=== PATIENT | male | born 1955 | race African-American/Black ===

== ENCOUNTER 2019-03-06 19:50 | Inpatient (IN) | payer MEDICARE, OTHER ==
[~2019-03-06] VITALS: Ht 180.3 cm; Wt 97.5 kg
[2019-03-06 23:33] VITALS: BP 146/74
--- NOTE | 2019-03-06 23:50 | NUR ---
NURSE NOTES: Received report from PAM Juarez [facility]. Pt arrived awake, alert, and talkative. skin intact. lung sounds clear. bowel sounds present. pt still c/o chest pain. Called and informed Dr granger as well as received admission orders. Bed in lowest position. Call light within reach. Family at bedside. Will continue to monitor.
--- NOTE | 2019-03-07 01:30 | NUR ---
NURSE NOTES: Dr. Yap gave the following orders: - continue home meds except for fish oil, prednisone, and cyclobenzaprine - heparin q12 - medium sliding scale - azithromycin daily X5 days 250 mg - rocephin 1 gm iv q24 hrs - cbc, cmp, mag, phos - troponin - 2decho - cardiac/ccho med diet Will input orders. Will continue to monitor.
[2019-03-07] MEDS ORDERED: SENNA8.6 M2 PO (02:33)
[2019-03-07] MEDS ORDERED: ALLOPURINOL100 M1 ORAL (02:33)
[2019-03-07] MEDS ORDERED: VITAMIN D400 INTLU ORAL (02:33)
[2019-03-07] MEDS ORDERED: AMLODIPINE BESYL5 MG ORAL (02:33)
[2019-03-07] MEDS ORDERED: OMEPRAZOLE20 M3 ORAL (02:33)
[2019-03-07] MEDS ORDERED: MITIGARE0.6 MG PO (02:33)
[2019-03-07] MEDS ORDERED: METFORMIN HCL1000 M2 ORAL (02:33)
[2019-03-07] MEDS ORDERED: ASPIR 8181 MG ORAL (02:33)
[2019-03-07] MEDS ORDERED: FINASTERIDE5 MG ORAL (02:33)
[2019-03-07] MEDS ORDERED: FLOMAX0.4 MG ORAL (02:33)
[2019-03-07] MEDS ORDERED: HYDROCHLOROTHIA25 MG ORAL (02:33)
[2019-03-07] MEDS ORDERED: METOPROLOL TART50 M1 ORAL (02:33)
[2019-03-07] MEDS ORDERED: CLOPIDOGREL75 MG ORAL (02:33)
[2019-03-07] MEDS ORDERED: FUROSEMIDE40 MG ORAL (02:33)
[2019-03-07] MEDS: cefTRIAXone 1 GM in D5W 55 ML IVPB SCH (03:44)
[2019-03-07] MEDS: NovoLOG Insulin Flexpen SUBQ SCH ×4 (06:16→22:00)
[2019-03-07 07:00] LABS: ALANINE AMINOTRANSFERASE 36 U/L (12-78); ALBUMIN 3.4 G/DL (3.4-5.0); ALKALINE PHOSPHATASE 55 U/L (46-116); ANION GAP 8 mmol/L (5-15); ASPARTATE AMINO TRANSFERASE 33 U/L (15-37); BILIRUBIN,TOTAL 0.5 MG/DL (0.2-1.0); BLOOD UREA NITROGEN 20 mg/dL (7-18); CALCIUM 9.2 MG/DL (8.5-10.1); CARBON DIOXIDE 29 MMOL/L (21-32); CHLORIDE 103 MMOL/L (98-107); CREATININE 1.2 MG/DL (0.55-1.30); PHOSPHORUS 3.6 MG/DL (2.5-4.9); POTASSIUM 3.5 MMOL/L (3.5-5.1); SODIUM 139 MMOL/L (136-145)
[2019-03-07 07:09] LABS: BASOPHILS % (AUTO) 1.1 % (0.0-2.0); EOSINOPHILS % (AUTO) 3.6 % (0.0-3.0); HEMATOCRIT 37.3 % (42.0-52.0); HEMOGLOBIN 12.8 G/DL (14.2-18.0); LYMPHOCYTES % (AUTO) 29.4 % (20.0-45.0); MEAN CORPUSCULAR VOLUME 88 FL (80-99); MONOCYTES % (AUTO) 10.7 % (1.0-10.0); NEUTROPHILS % (AUTO) 55.2 % (45.0-75.0); PLATELET COUNT 148 K/UL (150-450); RED BLOOD COUNT 4.23 M/UL (4.70-6.10); RED CELL DISTRIBUTION WIDTH 11.6 % (11.6-14.8); WHITE BLOOD COUNT 4.9 K/UL (4.8-10.8)
[2019-03-07] MEDS ORDERED: BUPROPION XL300 MG ORAL (07:09)
[2019-03-07] MEDS ORDERED: SEROQUEL300 MG ORAL (07:09)
[2019-03-07] MEDS ORDERED: LATUDA120 MG PO ×2 (07:09)
--- NOTE | 2019-03-07 07:15 | NUR ---
NURSE NOTES: Called and left a message with Dr. Yap regarding pts troponin level. Will continue to monitor.
--- NOTE | 2019-03-07 07:36 | NUR ---
HAND-OFF: Report given to PAM Angulo. Pt stable.
--- NOTE | 2019-03-07 07:37 | NUR ---
NURSE NOTES: Received report from PAM Olea. Pt is resting in bed, A/Ox4. Breathing unlabored in room air. IV patent. No signs and symptoms of acute distress noted at this time. Bed in lowest position, with two side rails up. Bed side table and call light within reach. Will continue plan of care.
[2019-03-07 08:00] VITALS: BP 116/52
[2019-03-07] MEDS: Aspirin EC 81mg tab ORAL SCH (08:50)
[2019-03-07] MEDS: BuPROPion XL 150mg tab ORAL SCH (08:51)
[2019-03-07] MEDS: Azithromycin 250mg tab ORAL SCH (08:51)
[2019-03-07] MEDS: Vitamin D 1000 IU Tab ORAL SCH (08:51)
[2019-03-07] MEDS: Furosemide 40mg tab ORAL SCH (08:51)
[2019-03-07] MEDS: Allopurinol 100mg Tab ORAL SCH (08:52)
[2019-03-07] MEDS: Morphine Sulfate 2mg/ml Inj(IV/IM USE ONLY) IVP PRN ×4 (08:53→21:51)
--- NOTE | 2019-03-07 08:53 | NUR ---
CASE MANAGEMENT:REVIEW 63 YR OLD MALE TRANSFERRED FROM [facility] CC: CHEST PAIN SI: ACS 97.9 70 146/74 96% ON RA TROPONIN(+) 0.072 IS: IV ROCEPHIN Q24 AZITHROMYCIN PO QD ASA PO QD PLAVIX PO QD LOPRESSOR PO BID NORVASC PO QD HEPARIN SQ Q12 DIRECTLY ADMITTED TO TELEMETRY UNIT INTERQUAL CRITERIA MET
[2019-03-07] MEDS ORDERED: Heparin 5000 units/ml inj SUBQ SCH (09:00)
[2019-03-07] MEDS ORDERED: Metoprolol Tartrate 50mg tab ORAL SCH (09:00)
--- NOTE | 2019-03-07 10:39 | Consultation ---
History of Present Illness General Date patient seen: March 07, 2019 Present Illness HPI 63 year old male with hx of CAD, triple bypass (three years ago) with stent ( two years ago) , HTN, was taken to [facility] with CC of intermittent chest pain for a few days. Pain was described moderate which resolved with rest. It felt like "somebody sitting on his chest". He had a CTA of chest to rule out PE at [place], which showed patchy infiltrate at lower lobes. Allergies: Coded Allergies: No Known Allergies (Verified Allergy, Unknown, 10/15/07) Medication History Scheduled Allopurinol* (Allopurinol*), 100 MG ORAL DAILY, (Reported) Amlodipine Besylate* (Amlodipine Besylate*), 5 MG ORAL DAILY, (Reported) Aspirin* (Aspir 81*), 81 MG ORAL DAILY, (Reported) Bupropion Hcl* (Wellbutrin*), 300 MG ORAL DAILY, (Reported) Clopidogrel* (Clopidogrel*), 75 MG ORAL DAILY, (Reported) Finasteride (Finasteride), 5 MG ORAL DAILY, (Reported) Furosemide* (Lasix*), 40 MG ORAL DAILY, (Reported) Hydrochlorothiazide* (Hydrochlorothiazide*), 25 MG ORAL DAILY, (Reported) Lurasidone Hcl (Latuda), 120 MG PO DAILY, (Reported) Metformin Hcl (Metformin Hcl Er), 1,000 MG ORAL BID, (Reported) Metoprolol Tartrate* (Metoprolol Tartrate*), 50 MG ORAL BIDAC, (Reported) Omeprazole (Omeprazole), 20 MG ORAL DAILY, (Reported) Quetiapine Fumarate (Seroquel), 300 MG ORAL BEDTIME, (Reported) Sennosides (Senna), 8.6 MG PO BEDTIME, (Reported) Tamsulosin HCl (Flomax), 0.4 MG ORAL BEDTIME, (Reported) Vitamin D (Vitamin D3), 1,000 UNITS ORAL DAILY, (Reported) Miscellaneous Medications Colchicine (Mitigare), 0.6 MG PO, (Reported) Lurasidone Hcl (Latuda), 120 MG PO, (Reported) Patient History 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 maury allison Resuscitation status Full Code Advanced Directive on File Past Medical/Surgical History Past Medical/Surgical History: (1) Hx of heart artery stent (2) S/P triple vessel bypass Review of Systems Respiratory: Reports: cough All Other Systems: negative except mentioned in HPI Physical Exam General Appearance: WD/WN, no apparent distress Lines, tubes and drains: peripheral HEENT: normocephalic, atraumatic Neck: non-tender, normal alignment Respiratory/Chest: chest wall non-tender, lungs clear, normal breath sounds Breasts: no masses Cardiovascular/Chest: normal peripheral pulses Abdomen: normal bowel sounds, non tender Genitourinary/Rectal: normal prostate exam Skin Exam: normal pigmentation Last 24 Hour Vital Signs Date Time Temp Pulse Resp B/P (MAP) Pulse Ox O2 Delivery O2 Flow Rate FiO2 03/07/19 08:52 70 116/52 03/07/19 08:51 70 116/52 03/07/19 08:00 98.1 70 116/52 (73) 98 03/07/19 04:00 65 03/07/19 03:46 Room Air 03/07/19 00:00 71 03/06/19 23:33 97.9 70 146/74 (98) 96 Intake and Output 03/06/19 03/07/19 19:00 07:00 # Voids 2 Laboratory Tests Test 03/07/19 06:00 White Blood Count 4.9 K/UL (4.8-10.8) Red Blood Count 4.23 M/UL (4.70-6.10) L Hemoglobin 12.8 G/DL (14.2-18.0) L Hematocrit 37.3 % (42.0-52.0) L Mean Corpuscular Volume 88 FL (80-99) Mean Corpuscular Hemoglobin 30.4 PG (27.0-31.0) Mean Corpuscular Hemoglobin Concent 34.4 G/DL (32.0-36.0) Red Cell Distribution Width 11.6 % (11.6-14.8) Platelet Count 148 K/UL (150-450) L Mean Platelet Volume 7.6 FL (6.5-10.1) Neutrophils (%) (Auto) 55.2 % (45.0-75.0) Lymphocytes (%) (Auto) 29.4 % (20.0-45.0) Monocytes (%) (Auto) 10.7 % (1.0-10.0) H Eosinophils (%) (Auto) 3.6 % (0.0-3.0) H Basophils (%) (Auto) 1.1 % (0.0-2.0) Sodium Level 139 MMOL/L (136-145) Potassium Level 3.5 MMOL/L (3.5-5.1) Chloride Level 103 MMOL/L (98-107) Carbon Dioxide Level 29 MMOL/L (21-32) Anion Gap 8 mmol/L (5-15) Blood Urea Nitrogen 20 mg/dL (7-18) H Creatinine 1.2 MG/DL (0.55-1.30) Estimat Glomerular Filtration Rate > 60 mL/min (>60) Glucose Level 115 MG/DL (74-106) H Calcium Level 9.2 MG/DL (8.5-10.1) Phosphorus Level 3.6 MG/DL (2.5-4.9) Magnesium Level 1.5 MG/DL (1.8-2.4) L Total Bilirubin 0.5 MG/DL (0.2-1.0) Aspartate Amino Transf (AST/SGOT) 33 U/L (15-37) Alanine Aminotransferase (ALT/SGPT) 36 U/L (12-78) Alkaline Phosphatase 55 U/L (46-116) Troponin I 0.072 ng/mL (0.000-0.056) Total Protein 6.9 G/DL (6.4-8.2) Albumin 3.4 G/DL (3.4-5.0) Globulin 3.5 g/dL Albumin/Globulin Ratio 1.0 (1.0-2.7) Height (Feet): 5 Height (Inches): 11.00 Weight (Pounds): 215 Medications Current Medications Medications (Trade) Dose Ordered Sig/Melvin Route PRN Reason Start Time Stop Time Status Last Admin Dose Admin Allopurinol (Zyloprim) 100 mg DAILY ORAL 03/07/19 09:00 04/06/19 08:59 03/07/19 08:52 Amlodipine Besylate (Norvasc) 5 mg DAILY ORAL 03/07/19 09:00 04/06/19 08:59 03/07/19 08:52 Aspirin (Ecotrin) 81 mg DAILY ORAL 03/07/19 09:00 04/06/19 08:59 03/07/19 08:50 Azithromycin (Zithromax) 250 mg DAILY ORAL 03/07/19 09:00 5/8/19 00:00 03/07/19 08:51 Bupropion HCl (Wellbutrin XL) 300 mg DAILY ORAL 03/07/19 09:00 04/06/19 08:59 03/07/19 08:51 Ceftriaxone Sodium 1 gm/ Dextrose 55 ml @ 110 mls/hr Q24H IVPB 03/07/19 02:00 03/14/19 01:59 03/07/19 03:44 Clopidogrel Bisulfate (Plavix) 75 mg DAILY ORAL 03/07/19 09:00 04/06/19 08:59 03/07/19 08:51 Dextrose (Dextrose 50%) 25 ml Q30M PRN IV Hypoglycemia 03/07/19 01:15 04/06/19 01:14 Dextrose (Dextrose 50%) 50 ml Q30M PRN IV Hypoglycemia 03/07/19 01:15 04/06/19 01:14 Finasteride (Proscar) 5 mg DAILY ORAL 03/07/19 09:00 04/06/19 08:59 03/07/19 08:50 Furosemide (Lasix) 40 mg DAILY ORAL 03/07/19 09:00 04/06/19 08:59 03/07/19 08:51 Heparin Sodium (Porcine) (Heparin 5000 units/ml) 5,000 units EVERY 12 HOURS SUBQ 03/07/19 09:00 04/06/19 08:59 03/07/19 08:59 Hydrochlorothiazide (Hydrodiuril) 25 mg DAILY ORAL 03/07/19 09:00 04/06/19 08:59 03/07/19 08:51 Insulin Aspart (NovoLOG) BEFORE MEALS AND HS SUBQ 03/07/19 06:30 04/06/19 06:29 Magnesium Sulfate 100 ml @ 100 mls/hr Q1H IVPB 03/07/19 10:30 03/07/19 12:29 03/07/19 10:00 Metoprolol Tartrate (Lopressor) 50 mg BID ORAL 03/07/19 09:00 04/06/19 08:59 03/07/19 08:51 Morphine Sulfate (Morphine Sulfate) 2 mg Q4H PRN IVP For Pain 03/07/19 07:00 03/14/19 06:59 03/07/19 08:53 Non-Formulary Medication (Non-Formulary Med) 1 ea DAILY ORAL 03/07/19 09:00 04/06/19 08:59 UNV Quetiapine Fumarate (SEROquel) 300 mg BEDTIME ORAL 03/07/19 21:00 04/06/19 20:59 Sennosides (Senokot) 8.6 mg BEDTIME ORAL 03/07/19 21:00 04/06/19 20:59 Tamsulosin HCl (Flomax) 0.4 mg BEDTIME ORAL 03/07/19 21:00 04/06/19 20:59 Vitamin D (Vitamin D) 1,000 intlu DAILY ORAL 03/07/19 09:00 04/06/19 08:59 03/07/19 08:51 Assessment/Plan Problem List: (1) Bilateral pneumonia ICD Codes: J18.9 - Pneumonia, unspecified organism SNOMED: 291853462 (2) ACS (acute coronary syndrome) ICD Codes: I24.9 - Acute ischemic heart disease, unspecified SNOMED: 708700937 (3) Hx of heart artery stent ICD Codes: Z95.5 - Presence of coronary angioplasty implant and graft SNOMED: 37621027, 531764686 (4) S/P triple vessel bypass ICD Codes: Z95.1 - Presence of aortocoronary bypass graft SNOMED: 65810620, 886228471, 730229812 Assessment/Plan: serial ekg, troponin, echo cardiology to see sputum for c/s CXR iv abx symptomatic management. Maya Cannon MD March 07, 2019 10:39
[2019-03-07] MEDS ORDERED: Promethazine/Codeine 5ml UD ORAL PRN (10:45)
[2019-03-07 12:00] VITALS: BP 120/62
[2019-03-07 12:01] VITALS: BP 120/62
--- NOTE | 2019-03-07 12:49 | History & Physical ---
History and Physical History & Physicial Everardo Yap MD March 07, 2019 12:49
--- NOTE | 2019-03-07 12:52 | Cardiac Electrophysiology PN ---
Subjective Subjective [id number] Objective Last 24 Hour Vital Signs Date Time Temp Pulse Resp B/P (MAP) Pulse Ox O2 Delivery O2 Flow Rate FiO2 03/07/19 08:52 70 116/52 03/07/19 08:51 70 116/52 03/07/19 08:00 98.1 70 116/52 (73) 98 03/07/19 04:00 65 03/07/19 03:46 Room Air 03/07/19 00:00 71 03/06/19 23:33 97.9 70 146/74 (98) 96 Intake and Output 03/06/19 03/07/19 19:00 07:00 # Voids 2 Laboratory Tests Test 03/07/19 06:00 White Blood Count 4.9 K/UL (4.8-10.8) Red Blood Count 4.23 M/UL (4.70-6.10) L Hemoglobin 12.8 G/DL (14.2-18.0) L Hematocrit 37.3 % (42.0-52.0) L Mean Corpuscular Volume 88 FL (80-99) Mean Corpuscular Hemoglobin 30.4 PG (27.0-31.0) Mean Corpuscular Hemoglobin Concent 34.4 G/DL (32.0-36.0) Red Cell Distribution Width 11.6 % (11.6-14.8) Platelet Count 148 K/UL (150-450) L Mean Platelet Volume 7.6 FL (6.5-10.1) Neutrophils (%) (Auto) 55.2 % (45.0-75.0) Lymphocytes (%) (Auto) 29.4 % (20.0-45.0) Monocytes (%) (Auto) 10.7 % (1.0-10.0) H Eosinophils (%) (Auto) 3.6 % (0.0-3.0) H Basophils (%) (Auto) 1.1 % (0.0-2.0) Sodium Level 139 MMOL/L (136-145) Potassium Level 3.5 MMOL/L (3.5-5.1) Chloride Level 103 MMOL/L (98-107) Carbon Dioxide Level 29 MMOL/L (21-32) Anion Gap 8 mmol/L (5-15) Blood Urea Nitrogen 20 mg/dL (7-18) H Creatinine 1.2 MG/DL (0.55-1.30) Estimat Glomerular Filtration Rate > 60 mL/min (>60) Glucose Level 115 MG/DL (74-106) H Calcium Level 9.2 MG/DL (8.5-10.1) Phosphorus Level 3.6 MG/DL (2.5-4.9) Magnesium Level 1.5 MG/DL (1.8-2.4) L Total Bilirubin 0.5 MG/DL (0.2-1.0) Aspartate Amino Transf (AST/SGOT) 33 U/L (15-37) Alanine Aminotransferase (ALT/SGPT) 36 U/L (12-78) Alkaline Phosphatase 55 U/L (46-116) Troponin I 0.072 ng/mL (0.000-0.056) Total Protein 6.9 G/DL (6.4-8.2) Albumin 3.4 G/DL (3.4-5.0) Globulin 3.5 g/dL Albumin/Globulin Ratio 1.0 (1.0-2.7) Jared Huffman MD March 07, 2019 12:52
[2019-03-07] MEDS: Enoxaparin 100mg Inj SUBQ SCH ×2 (14:49→22:01)
--- NOTE | 2019-03-07 15:12 | Cardiology Report ---
APPROVED REPORT EXAM: Two-dimensional and M-mode echocardiogram with Doppler and color Doppler. INDICATION Chest Pain M-Mode DIMENSIONS IVSd1.7 (0.7-1.1cm)Left Atrium (MM)3.1 (1.6-4.0cm) LVDd3.8 (3.5-5.6cm)Aortic Root3.2 (2.0-3.7cm) PWd1.8 (0.7-1.1cm)Aortic Cusp Exc.2.0 (1.5-2.0cm) IVSs1.9 cm LVDs2.2 (2.5-4.0cm) PWs2.2 cm Technically difficult study due to poor acoustical windows. Normal left ventricular chamber size, systolic function and wall motion to extent visualized. Left ventricular ejection fraction estimated to be 60 %. Mild left ventricular hypertrophy. No evidence of pericardial effusion. Right atrial size at upper limits of normal. All other cardiac chamber sizes are within normal limits. Focal aortic valve sclerosis with adequate cusp excursion. Thickened mitral valve leaflets with normal excursion. Mitral annulus and aortic root calcification. Pulmonic valve not well visualized. Normal tricuspid valve structure. IVC at normal size with physiologic collapse. A color flow and spectral Doppler study was performed and revealed: Trace aortic regurgitation. Trace mitral regurgitation. Mitral inflow indicates normal left ventricular diastolic function. Moderate tricuspid regurgitation. Tricuspid systolic velocities suggests peak right ventricular systolic pressure of 40 mmHg, consistent with mild pulmonary hypertension.
[2019-03-07 16:00] VITALS: BP 121/68
--- NOTE | 2019-03-07 19:01 | Consultation ---
Consult Note Consult Note # [id number] Byron Sky MD March 07, 2019 19:01
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
--- NOTE | 2019-03-07 19:25 | NUR ---
NURSE NOTES: Received report from Steven Rutherford RN.Pt is sleeping in the bed w/o distress in RA. IV is at RAC 20G w. SL. Endorsed that Pt is ambulatory with steady gait. Pt was instructed to call for help in any case. Pt verbalized the understanding. Bed is in the lowest and breaks are engaged. Call light, urinal, and side table. Will follow plans of care.
--- NOTE | 2019-03-07 19:45 | Consultation ---
DATE OF CONSULTATION: 03/07/2019 CONSULTING PHYSICIAN: Jared Huffman M.D. REFERRING PHYSICIAN: Everardo Yap M.D. REASON FOR CONSULTATION: Chest pain. The patient with history of coronary artery bypass graft. HISTORY OF PRESENT ILLNESS: The patient is a 63-year-old gentleman with history of coronary artery bypass graft 4 years ago in [facility] as well as history of stent placement about 2 years ago. The patient also has history of hypertension. The patient was taken to [facility] initially, complaining of chest pain. The patient was then transferred to [facility], as the patient is not a [facility] member. The patient underwent CT angio of the pulmonary that showed no evidence of pulmonary embolism. At the time of my evaluation, the patient is comfortable. Denies any chest pain or shortness of breath. REVIEW OF SYSTEMS: Review of systems was negative other than what is mentioned in the history of present illness. PAST MEDICAL HISTORY: 1. Hypertension. 2. Prediabetes. 3. Hyperlipidemia. 4. History of triple bypass 4 years ago as well as history of stents. 5. Bipolar disorder. MEDICATIONS: Includes: 1. Seroquel. 2. Abilify. 3. Wellbutrin. 4. Effexor. 5. Aspirin. 6. Plavix. 7. Amlodipine. 8. Lasix. 9. Hydrochlorothiazide. 10. Flomax. PHYSICAL EXAMINATION: VITAL SIGNS: Showed blood pressure is 111/52, pulse 60, respirations 18, and he is afebrile. HEAD AND NECK: Showed no JVD or carotid bruits. LUNGS: Clear. CARDIOVASCULAR: Shows regular S1 and S2 with no gallop or murmur. ABDOMEN: Soft and nontender. EXTREMITIES: No pitting edema. Sternotomy scar is intact. LABORATORY AND DIAGNOSTIC DATA: Labs show white count of 4.9, hemoglobin 12.9, hematocrit 37.3, and platelet count of 148,000. Sodium 139, potassium 3.5, BUN of 20, creatinine 1.2. Troponin 0.072. ASSESSMENT AND PLAN: 1. Chest pain in the patient with history of coronary artery bypass graft and stent placement. Now troponin is 0.072. We will resume aspirin, Plavix, beta-kyree, and statin. We will get an echocardiogram. We will repeat EKG. Put him on heparin drip until we follow up troponin levels and repeat the EKG as well. If troponins rise, the patient may need to be transferred for cardiac catheterization. 2. Hypertension. Continue Lasix 40 mg daily, metoprolol 50 mg b.i.d., hydrochlorothiazide 25 mg daily. 3. Diabetes. 4. Psychiatric disorder. 5. Prostatic hypertrophy, on Flomax. 6. Pneumonia, on azithromycin. Thank you very much, Dr. Yap, for allowing me to participate in the care of this patient. Please do not hesitate to contact me for any questions regarding my evaluation. Jared Huffman M.D. DR: HENRRY JOB#: [id number] CC:
[2019-03-07 20:00] VITALS: BP 158/104
--- NOTE | 2019-03-07 20:05 | NUR ---
HAND-OFF: Report given to PAM Lima.
[2019-03-07] MEDS: Metoprolol 25mg tab ORAL SCH (21:00)
[2019-03-07] MEDS ORDERED: Enoxaparin 80mg Inj SUBQ SCH (21:00)
[2019-03-07] MEDS ORDERED: Sennosides 8.6mg tab ORAL SCH (21:00)
[2019-03-07] MEDS: Tamsulosin 0.4mg cap ORAL SCH (21:58)
[2019-03-07] MEDS: Theophylline ER 100mg ORAL SCH (21:59)
--- NOTE | 2019-03-07 22:15 | Consultation ---
DATE OF CONSULTATION: 03/07/2019 INFECTIOUS DISEASES CONSULTATION CONSULTING PHYSICIAN: Byron Sky M.D. REFERRING PHYSICIANS: 1. Everardo Yap M.D. 2. Maya Cannon M.D. REASON FOR CONSULTATION: Evaluation of the patient for pneumonia and antibiotic management. HISTORY OF PRESENT ILLNESS: The patient is a 63-year-old male with past medical history who was admitted to [facility] due to chest discomfort. CT angio did not show evidence of PE; however, showed bilateral lower lobe patchy infiltrates. The patient was transferred here for further care and management of pneumonia. Infectious Diseases consultation has been requested for further evaluation of the patient and antibiotic treatment. PAST MEDICAL HISTORY: 1. History of CAD, status post CABG. 2. Hypertension. 3. Diabetes. 4. History of bipolar disorder. 5. History of hyperlipidemia. ALLERGIES: No known drug allergies. SOCIAL HISTORY: The patient smokes two cigarettes a day. FAMILY HISTORY: Not contributing. REVIEW OF SYSTEMS: A 10-point was done, except for what was mentioned has been negative. PHYSICAL EXAMINATION: VITAL SIGNS: Temperature 97.2, pulse 66, respiratory rate 18, and blood pressure 121/68. HEENT: No pale conjunctivae. No icterus. NECK: No lymphadenopathy. CHEST: Coarse breathing sounds. HEART: S1 and S2. ABDOMEN: Soft, obese, nontender EXTREMITIES: No cyanosis. NEUROLOGIC: Awake and alert. LABORATORY AND DIAGNOSTIC DATA: White blood cells 4.9 hemoglobin 12.8, platelet of 148. BUN 20 and creatinine 1.8. ALT, AST, and alkaline phosphatase unremarkable. ASSESSMENT: The patient is a 63-year-old male with: 1. Pneumonia ( CT scanner from outside facility ). 2. Afebrile. 3. History of fever prior to admission. 4. Normal white blood cells. PLAN: 1. We will continue the patient on Rocephin and Zithromax day #11/09. 2. Monitor CBC. 3. Monitor CBC. 4. Monitor BMP. 5. Monitor sputum culture. 6. Monitor clinical course and labs. 7. Based on those, we will do further recommendations. Thank you, Dr. Cannon and Dr. Yap, for allowing me to participate in the care of this patient. I will follow the patient with you in this hospitalization. Byron Sky M.D. DR: Miri JOB#: [id number] CC:
[2019-03-08] VITALS: BP 128/69
[2019-03-08] MEDS: cefTRIAXone 1 GM in D5W 55 ML IVPB SCH (02:00)
--- NOTE | 2019-03-08 02:09 | NUR ---
NURSE NOTES: Pt is sleeping w/o distress in RA. No s/s of CP at this time. SR in the monitor. Will continue to monitor.
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
[2019-03-08 03:50] LABS: INR 1.1 (0.9-1.1)
[2019-03-08 04:00] VITALS: BP 120/71
[2019-03-08 04:03] LABS: ALANINE AMINOTRANSFERASE 40 U/L (12-78); ALBUMIN 3.6 G/DL (3.4-5.0); ALKALINE PHOSPHATASE 57 U/L (46-116); ANION GAP 6 mmol/L (5-15); ASPARTATE AMINO TRANSFERASE 36 U/L (15-37); BILIRUBIN,TOTAL 0.6 MG/DL (0.2-1.0); BLOOD UREA NITROGEN 16 mg/dL (7-18); CALCIUM 9.4 MG/DL (8.5-10.1); CARBON DIOXIDE 33 MMOL/L (21-32); CHLORIDE 101 MMOL/L (98-107); CHOLESTEROL 138 MG/DL (< 200); CREATININE 1.1 MG/DL (0.55-1.30); HDL CHOLESTEROL 56 MG/DL (40-60); POTASSIUM 3.4 MMOL/L (3.5-5.1); SODIUM 140 MMOL/L (136-145); TRIGLYCERIDES 69 MG/DL (30-150)
[2019-03-08] MEDS: NovoLOG Insulin Flexpen SUBQ SCH ×2 (06:32→12:37)
[2019-03-08] MEDS: Morphine Sulfate 2mg/ml Inj(IV/IM USE ONLY) IVP PRN ×3 (07:21→19:17)
--- NOTE | 2019-03-08 07:24 | NUR ---
HAND-OFF: Report given to Catarino Kirk RN.
--- NOTE | 2019-03-08 07:37 | NUR ---
NURSE NOTES: Received report from Carmelo Church. Pt is sitting up in Bed having breakfast. No distress noted. Bed is in lowest position, side rails up X2, and call light is within reach. Will continue to monitor.
[2019-03-08 08:00] VITALS: BP 141/80
--- NOTE | 2019-03-08 08:19 | Pulmonology Progress Note ---
Assessment/Plan Assessment/Plan ASSESSMENT possibly bilateral pneumonia elevated troponin, possible ACS -acute MO ruled out CAD with hx of triple bypass with stents placement HT Hypo Mg DM BPH PLAN OF CARE transferred from [place] tele CTA [place] - no PE, but with evidence of bilateral infiltrates telemetry empiric antibiotic SCX negative O2 HHN prn trial of theophylline antitussive prn fup with CXR DVT prophylaxis continue dual a/PLT therapy : ASA and Plavix repeated troponin x 2 negative Echo with pEF 60 %, no WMA, RVSP of 40 c/w mild pulm HTN BP management with the CCB , BB and hydrochlorothiazide continue maintenance dose of Lasix, monitor volumes and cardiorenal parameters replete K today monitor renal parameters and electrolytes, correct electrolytes further as needed, avoid nephrotoxic continue Flomax and Proscar , monitor for voiding BS management with SSI pain management supportive care case discussed and evaluated by supervising physician Subjective Allergies: Coded Allergies: No Known Allergies (Verified Allergy, Unknown, 10/15/07) Subjective remains afebrile, pulse ox stable on RA Objective Last 24 Hour Vital Signs Date Time Temp Pulse Resp B/P (MAP) Pulse Ox O2 Delivery O2 Flow Rate FiO2 03/08/19 04:00 97.0 58 18 120/71 (87) 100 03/08/19 03:54 56 03/08/19 00:00 97.7 59 20 128/69 (88) 99 03/07/19 23:48 60 03/07/19 21:00 55 130/66 03/07/19 20:58 Room Air 03/07/19 20:00 99.7 73 18 158/104 (122) 98 03/07/19 19:45 58 03/07/19 16:00 97.2 55 20 121/68 (85) 97 03/07/19 16:00 52 03/07/19 12:01 97.8 68 18 120/62 (81) 98 03/07/19 12:00 75 03/07/19 09:00 Room Air 03/07/19 08:52 70 116/52 03/07/19 08:51 70 116/52 Intake and Output 03/07/19 03/08/19 19:00 07:00 Intake Total 750 ml 110 ml Output Total 2000 ml 1200 ml Balance -1250 ml -1090 ml Intake Oral 750 ml IV Total 110 ml Output Urine Total 2000 ml 1200 ml # Voids 1 General Appearance: no acute distress HEENT: normocephalic, atraumatic, anicteric, mucous membranes moist Respiratory/Chest: lungs clear, no respiratory distress, no accessory muscle use Cardiovascular: regular rhythm - SB on tele , JVD Abdomen: normal bowel sounds, soft, non tender, non distended Neurologic/Psychiatric: no motor/sensory deficits, alert, responsive Musculoskeletal: normal muscle bulk Microbiology Date/Time Source Procedure Growth Status 03/07/19 14:30 Sputum Gram Stain - Final Resulted 03/07/19 14:30 Sputum Sputum Culture - Preliminary NORMAL UPPER RESPIRATORY SHWETA PRESENT Resulted Laboratory Tests 03/07/19 14:30: Urine Opiates Screen Negative, Urine Barbiturates Screen Negative, Phencyclidine (PCP) Screen Negative, Urine Amphetamines Screen Negative, Urine Benzodiazepines Screen Negative, Urine Cocaine Screen Negative, Urine Marijuana (THC) Screen Negative 03/07/19 18:50: Troponin I 0.050 03/08/19 03:14: Troponin I 0.042, Prothrombin Time 11.3, Prothromb Time International Ratio 1.1 , Activated Partial Thromboplast Time 34H, Sodium Level 140, Potassium Level 3.4L, Chloride Level 101, Carbon Dioxide Level 33H, Anion Gap 6, Blood Urea Nitrogen 16, Creatinine 1.1, Estimat Glomerular Filtration Rate > 60, Glucose Level 115H, Lactic Acid Level 0.90, Calcium Level 9.4, Total Bilirubin 0.6, Aspartate Amino Transf (AST/SGOT) 36, Alanine Aminotransferase (ALT/SGPT) 40, Alkaline Phosphatase 57, Pro-B-Type Natriuretic Peptide 967H, Total Protein 7.2 , Albumin 3.6, Globulin 3.6, Albumin/Globulin Ratio 1.0, Triglycerides Level 69 , Cholesterol Level 138, LDL Cholesterol 75, HDL Cholesterol 56, Cholesterol/ HDL Ratio 2.5L, Thyroid Stimulating Hormone (TSH) 2.391 Current Medications Medications (Trade) Dose Ordered Sig/Melvin Route PRN Reason Start Time Stop Time Status Last Admin Dose Admin Allopurinol (Zyloprim) 100 mg DAILY ORAL 03/07/19 09:00 04/06/19 08:59 03/07/19 08:52 Amlodipine Besylate (Norvasc) 5 mg DAILY ORAL 03/07/19 09:00 04/06/19 08:59 03/07/19 08:52 Aspirin (Ecotrin) 81 mg DAILY ORAL 03/07/19 09:00 04/06/19 08:59 03/07/19 08:50 Azithromycin (Zithromax) 250 mg DAILY ORAL 03/07/19 09:00 03/12/19 00:00 03/07/19 08:51 Bupropion HCl (Wellbutrin XL) 300 mg DAILY ORAL 03/07/19 09:00 04/06/19 08:59 03/07/19 08:51 Ceftriaxone Sodium 1 gm/ Dextrose 55 ml @ 110 mls/hr Q24H IVPB 03/07/19 02:00 03/14/19 01:59 03/08/19 02:00 Clopidogrel Bisulfate (Plavix) 75 mg DAILY ORAL 03/07/19 09:00 04/06/19 08:59 03/07/19 08:51 Dextrose (Dextrose 50%) 25 ml Q30M PRN IV Hypoglycemia 03/07/19 01:15 04/06/19 01:14 Dextrose (Dextrose 50%) 50 ml Q30M PRN IV Hypoglycemia 03/07/19 01:15 04/06/19 01:14 Enoxaparin Sodium (Lovenox) 100 mg EVERY 12 HOURS SUBQ 03/07/19 14:00 04/06/19 13:59 03/07/19 22:01 Finasteride (Proscar) 5 mg DAILY ORAL 03/07/19 09:00 04/06/19 08:59 03/07/19 08:50 Furosemide (Lasix) 40 mg DAILY ORAL 03/07/19 09:00 04/06/19 08:59 03/07/19 08:51 Hydrochlorothiazide (Hydrodiuril) 25 mg DAILY ORAL 03/07/19 09:00 04/06/19 08:59 03/07/19 08:51 Insulin Aspart (NovoLOG) BEFORE MEALS AND HS SUBQ 03/07/19 06:30 04/06/19 06:29 03/08/19 06:32 Metoprolol Tartrate (Lopressor) 25 mg Q12HR ORAL 03/07/19 21:00 04/06/19 20:59 Morphine Sulfate (Morphine Sulfate) 2 mg Q4H PRN IVP For Pain 03/07/19 07:00 03/14/19 06:59 03/08/19 07:21 Non-Formulary Medication (Non-Formulary Med) 1 ea DAILY ORAL 03/07/19 09:00 04/06/19 08:59 UNV Promethazine HCl/ Codeine (Phenergan with Codeine) 5 ml Q4H PRN ORAL For Cough 03/07/19 10:45 04/06/19 10:44 Quetiapine Fumarate (SEROquel) 300 mg BEDTIME ORAL 03/07/19 21:00 04/06/19 20:59 03/07/19 21:59 Sennosides (Senokot) 8.6 mg BEDTIME ORAL 03/07/19 21:00 04/06/19 20:59 03/07/19 21:58 Tamsulosin HCl (Flomax) 0.4 mg BEDTIME ORAL 03/07/19 21:00 04/06/19 20:59 03/07/19 21:58 Theophylline (Genaro-Dur) 100 mg EVERY 12 HOURS ORAL 03/07/19 21:00 04/06/19 20:59 03/07/19 21:59 Vitamin D (Vitamin D) 1,000 intlu DAILY ORAL 03/07/19 09:00 04/06/19 08:59 03/07/19 08:51 Celeste Peters NP March 08, 2019 08:19
[2019-03-08] MEDS: Furosemide 40mg tab ORAL SCH (08:49)
[2019-03-08] MEDS: Vitamin D 1000 IU Tab ORAL SCH (08:49)
[2019-03-08] MEDS: Metoprolol 25mg tab ORAL SCH ×3 (08:49→20:21)
[2019-03-08] MEDS: Allopurinol 100mg Tab ORAL SCH (08:50)
[2019-03-08] MEDS: Theophylline ER 100mg ORAL SCH ×2 (08:50→20:15)
[2019-03-08] MEDS: Azithromycin 250mg tab ORAL SCH (08:50)
[2019-03-08] MEDS: Aspirin EC 81mg tab ORAL SCH (08:50)
[2019-03-08] MEDS: BuPROPion XL 150mg tab ORAL SCH (08:50)
[2019-03-08] MEDS: Enoxaparin 100mg Inj SUBQ SCH ×2 (08:53→20:17)
[2019-03-08 12:00] VITALS: BP 125/75
[2019-03-08] MEDS ORDERED: Albuterol/Ipratropium 3ml neb HHN PRN (12:30)
--- NOTE | 2019-03-08 12:37 | NUR ---
NURSE NOTES: pt states that he does not take insulin at home and will not take it here. He takes metformin and wants to continue to take that. Will contact
--- NOTE | 2019-03-08 13:05 | NUR ---
NURSE NOTES: Pt states, "I will not take insulin, since I do no take any at home as I take metformin twice a day." Pt aContacted Fran LANGSTON. Orders noted and carried out.
--- NOTE | 2019-03-08 13:42 | Internal Med Progress Note ---
Subjective Date of Service: March 08, 2019 Physician Name Wil Jackson Attending Physician Everardo Yap MD Current Medications Medications (Trade) Dose Ordered Sig/Melvin Route PRN Reason Start Time Stop Time Status Last Admin Dose Admin Albuterol/ Ipratropium (Albuterol/ Ipratropium) 3 ml Q4H PRN HHN Shortness of Breath 03/08/19 12:30 03/13/19 12:29 Allopurinol (Zyloprim) 100 mg DAILY ORAL 03/07/19 09:00 04/06/19 08:59 03/08/19 08:50 Amlodipine Besylate (Norvasc) 5 mg DAILY ORAL 03/07/19 09:00 04/06/19 08:59 03/08/19 08:50 Aspirin (Ecotrin) 81 mg DAILY ORAL 03/07/19 09:00 04/06/19 08:59 03/08/19 08:50 Azithromycin (Zithromax) 250 mg DAILY ORAL 03/07/19 09:00 03/12/19 00:00 03/08/19 08:50 Bupropion HCl (Wellbutrin XL) 300 mg DAILY ORAL 03/07/19 09:00 04/06/19 08:59 03/08/19 08:50 Ceftriaxone Sodium 1 gm/ Dextrose 55 ml @ 110 mls/hr Q24H IVPB 03/07/19 02:00 03/14/19 01:59 03/08/19 02:00 Clopidogrel Bisulfate (Plavix) 75 mg DAILY ORAL 03/07/19 09:00 04/06/19 08:59 03/08/19 08:51 Dextrose (Dextrose 50%) 25 ml Q30M PRN IV Hypoglycemia 03/07/19 01:15 04/06/19 01:14 Dextrose (Dextrose 50%) 50 ml Q30M PRN IV Hypoglycemia 03/07/19 01:15 04/06/19 01:14 Enoxaparin Sodium (Lovenox) 100 mg EVERY 12 HOURS SUBQ 03/07/19 14:00 04/06/19 13:59 03/08/19 08:53 Finasteride (Proscar) 5 mg DAILY ORAL 03/07/19 09:00 04/06/19 08:59 03/08/19 08:50 Furosemide (Lasix) 40 mg DAILY ORAL 03/07/19 09:00 04/06/19 08:59 03/08/19 08:49 Hydrochlorothiazide (Hydrodiuril) 25 mg DAILY ORAL 03/07/19 09:00 04/06/19 08:59 03/08/19 08:51 Insulin Aspart (NovoLOG) BEFORE MEALS AND HS SUBQ 03/07/19 06:30 04/06/19 06:29 03/08/19 06:32 Metoprolol Tartrate (Lopressor) 25 mg Q12HR ORAL 03/07/19 21:00 04/06/19 20:59 03/08/19 08:49 Morphine Sulfate (Morphine Sulfate) 2 mg Q4H PRN IVP For Pain 03/07/19 07:00 03/14/19 06:59 03/08/19 07:21 Non-Formulary Medication (Non-Formulary Med) 1 ea DAILY ORAL 03/07/19 09:00 04/06/19 08:59 UNV Potassium Chloride (K-Dur) 20 meq ONCE ORAL 03/08/19 13:15 03/08/19 14:15 Promethazine HCl/ Codeine (Phenergan with Codeine) 5 ml Q4H PRN ORAL For Cough 03/07/19 10:45 04/06/19 10:44 Quetiapine Fumarate (SEROquel) 300 mg BEDTIME ORAL 03/07/19 21:00 04/06/19 20:59 03/07/19 21:59 Sennosides (Senokot) 8.6 mg BEDTIME ORAL 03/07/19 21:00 04/06/19 20:59 03/07/19 21:58 Tamsulosin HCl (Flomax) 0.4 mg BEDTIME ORAL 03/07/19 21:00 04/06/19 20:59 03/07/19 21:58 Theophylline (Genaro-Dur) 100 mg EVERY 12 HOURS ORAL 03/07/19 21:00 04/06/19 20:59 03/08/19 08:50 Vitamin D (Vitamin D) 1,000 intlu DAILY ORAL 03/07/19 09:00 04/06/19 08:59 03/08/19 08:49 Allergies: Coded Allergies: No Known Allergies (Verified Allergy, Unknown, 10/15/07) ROS Limited/Unobtainable: No Constitutional: Reports: no symptoms HEENT: Reports: no symptoms Cardiovascular: Reports: chest pain Respiratory: Reports: shortness of breath Gastrointestinal/Abdominal: Reports: no symptoms Genitourinary: Reports: no symptoms Neurologic/Psychiatric: Reports: no symptoms Subjective 63 YO M with history of coronary dis, admitted with chest pain. Cover for Int Grey-Dr Yap Objective Last Vital Signs Date Time Temp Pulse Resp B/P (MAP) Pulse Ox O2 Delivery O2 Flow Rate FiO2 03/08/19 12:00 98.0 64 20 125/75 (92) 99 03/08/19 09:00 Room Air Laboratory Tests Test 03/07/19 14:30 03/07/19 18:50 03/08/19 03:14 Urine Opiates Screen Negative (NEGATIVE) Urine Barbiturates Screen Negative (NEGATIVE) Phencyclidine (PCP) Screen Negative (NEGATIVE) Urine Amphetamines Screen Negative (NEGATIVE) Urine Benzodiazepines Screen Negative (NEGATIVE) Urine Cocaine Screen Negative (NEGATIVE) Urine Marijuana (THC) Screen Negative (NEGATIVE) Troponin I 0.050 ng/mL (0.000-0.056) 0.042 ng/mL (0.000-0.056) Prothrombin Time 11.3 SEC (9.30-11.50) Prothromb Time International Ratio 1.1 (0.9-1.1) Activated Partial Thromboplast Time 34 SEC (23-33) H Sodium Level 140 MMOL/L (136-145) Potassium Level 3.4 MMOL/L (3.5-5.1) L Chloride Level 101 MMOL/L (98-107) Carbon Dioxide Level 33 MMOL/L (21-32) H Anion Gap 6 mmol/L (5-15) Blood Urea Nitrogen 16 mg/dL (7-18) Creatinine 1.1 MG/DL (0.55-1.30) Estimat Glomerular Filtration Rate > 60 mL/min (>60) Glucose Level 115 MG/DL (74-106) H Lactic Acid Level 0.90 mmol/L (0.4-2.0) Calcium Level 9.4 MG/DL (8.5-10.1) Total Bilirubin 0.6 MG/DL (0.2-1.0) Aspartate Amino Transf (AST/SGOT) 36 U/L (15-37) Alanine Aminotransferase (ALT/SGPT) 40 U/L (12-78) Alkaline Phosphatase 57 U/L (46-116) Pro-B-Type Natriuretic Peptide 967 pg/mL (0-125) H Total Protein 7.2 G/DL (6.4-8.2) Albumin 3.6 G/DL (3.4-5.0) Globulin 3.6 g/dL Albumin/Globulin Ratio 1.0 (1.0-2.7) Triglycerides Level 69 MG/DL (30-150) Cholesterol Level 138 MG/DL (< 200) LDL Cholesterol 75 mg/dL (<100) HDL Cholesterol 56 MG/DL (40-60) Cholesterol/HDL Ratio 2.5 (3.3-4.4) L Thyroid Stimulating Hormone (TSH) 2.391 uiU/mL (0.358-3.740) Microbiology Date/Time Source Procedure Growth Status 03/07/19 14:30 Sputum Gram Stain - Final Resulted 03/07/19 14:30 Sputum Sputum Culture - Preliminary NORMAL UPPER RESPIRATORY SHWETA PRESENT Resulted Intake and Output 03/07/19 03/08/19 19:00 07:00 Intake Total 750 ml 110 ml Output Total 2000 ml 1200 ml Balance -1250 ml -1090 ml Intake Oral 750 ml IV Total 110 ml Output Urine Total 2000 ml 1200 ml # Voids 1 Objective PHYSICAL EXAMINATION: GENERAL: The patient is awake, responsive, in no acute distress. HEAD AND NECK: Pupils equal and reactive to light. Extraocular movements intact. NECK: Supple. No JVD. LUNGS: Good air entry. No wheezes or rales. HEART: S1, S2. Regular rhythm. No murmur or gallops. ABDOMEN: Soft, nondistended, nontender. Positive bowel sounds. EXTREMITIES: No cyanosis, clubbing, or edema. NEUROLOGIC: Cranial nerves II through XII grossly intact. Motor is 5/5 and symmetric. Gait is intact. RECTAL: Refused and deferred. GENITOURINARY: Refused and deferred. Assessment/Plan Problem List: (1) Chest pain Assessment & Plan: See cardiology note. LVEF=60% (2) Shortness of breath Assessment & Plan: See pulmonary note. (3) Coronary artery disease (4) HTN (hypertension) Assessment & Plan: Continue lopressor and HCTZ (5) Pre-diabetes Assessment & Plan: Continue novolog sliding scale (6) Hypercholesteremia (7) Bipolar depression Assessment & Plan: See psychiatry note. Wil Jackson MD March 08, 2019 13:42
--- NOTE | 2019-03-08 14:25 | Infectious Diseases Prog Note ---
Assessment/Plan Assessment/Plan ASSESSMENT: The patient is a 63-year-old male with: Pneumonia (CAP ) ( lower lobes as per outside facility CT scan) Afebrile. History of fever [employer] Normal white blood cells. History of CAD, status post CABG. Hypertension. Diabetes. History of bipolar disorder. History of hyperlipidemia. PLAN: Continue the patient on Rocephin and Zithromax day # 2/5n ( upon Dc will change to Augmentin and Zithro to complete the course) Monitor CBC. Monitor CBC. Monitor BMP. Monitor sputum culture Subjective Allergies: Coded Allergies: No Known Allergies (Verified Allergy, Unknown, 10/15/07) Subjective feeling better afebrile Objective Vital Signs Last 24 Hour Vital Signs Date Time Temp Pulse Resp B/P (MAP) Pulse Ox O2 Delivery O2 Flow Rate FiO2 03/08/19 12:00 98.0 64 20 125/75 (92) 99 03/08/19 12:00 55 03/08/19 09:00 Room Air 03/08/19 08:50 58 120/71 03/08/19 08:49 58 120/71 03/08/19 08:00 98.2 89 20 141/80 (100) 98 03/08/19 08:00 63 03/08/19 04:00 97.0 58 18 120/71 (87) 100 03/08/19 03:54 56 03/08/19 00:00 97.7 59 20 128/69 (88) 99 03/07/19 23:48 60 03/07/19 21:00 55 130/66 03/07/19 20:58 Room Air 03/07/19 20:00 99.7 73 18 158/104 (122) 98 03/07/19 19:45 58 03/07/19 16:00 97.2 55 20 121/68 (85) 97 03/07/19 16:00 52 Height (Feet): 5 Height (Inches): 11.00 Weight (Pounds): 215 HEENT: mucous membranes moist Respiratory/Chest: normal breath sounds Cardiovascular: regular rhythm Abdomen: soft, non tender Microbiology Date/Time Source Procedure Growth Status 03/07/19 14:30 Sputum Gram Stain - Final Resulted 03/07/19 14:30 Sputum Sputum Culture - Preliminary NORMAL UPPER RESPIRATORY SHWETA PRESENT Resulted Laboratory Tests Test 03/07/19 14:30 03/07/19 18:50 03/08/19 03:14 Urine Opiates Screen Negative (NEGATIVE) Urine Barbiturates Screen Negative (NEGATIVE) Phencyclidine (PCP) Screen Negative (NEGATIVE) Urine Amphetamines Screen Negative (NEGATIVE) Urine Benzodiazepines Screen Negative (NEGATIVE) Urine Cocaine Screen Negative (NEGATIVE) Urine Marijuana (THC) Screen Negative (NEGATIVE) Troponin I 0.050 ng/mL (0.000-0.056) 0.042 ng/mL (0.000-0.056) Prothrombin Time 11.3 SEC (9.30-11.50) Prothromb Time International Ratio 1.1 (0.9-1.1) Activated Partial Thromboplast Time 34 SEC (23-33) H Sodium Level 140 MMOL/L (136-145) Potassium Level 3.4 MMOL/L (3.5-5.1) L Chloride Level 101 MMOL/L (98-107) Carbon Dioxide Level 33 MMOL/L (21-32) H Anion Gap 6 mmol/L (5-15) Blood Urea Nitrogen 16 mg/dL (7-18) Creatinine 1.1 MG/DL (0.55-1.30) Estimat Glomerular Filtration Rate > 60 mL/min (>60) Glucose Level 115 MG/DL (74-106) H Lactic Acid Level 0.90 mmol/L (0.4-2.0) Calcium Level 9.4 MG/DL (8.5-10.1) Total Bilirubin 0.6 MG/DL (0.2-1.0) Aspartate Amino Transf (AST/SGOT) 36 U/L (15-37) Alanine Aminotransferase (ALT/SGPT) 40 U/L (12-78) Alkaline Phosphatase 57 U/L (46-116) Pro-B-Type Natriuretic Peptide 967 pg/mL (0-125) H Total Protein 7.2 G/DL (6.4-8.2) Albumin 3.6 G/DL (3.4-5.0) Globulin 3.6 g/dL Albumin/Globulin Ratio 1.0 (1.0-2.7) Triglycerides Level 69 MG/DL (30-150) Cholesterol Level 138 MG/DL (< 200) LDL Cholesterol 75 mg/dL (<100) HDL Cholesterol 56 MG/DL (40-60) Cholesterol/HDL Ratio 2.5 (3.3-4.4) L Thyroid Stimulating Hormone (TSH) 2.391 uiU/mL (0.358-3.740) Current Medications Medications (Trade) Dose Ordered Sig/Melvin Route PRN Reason Start Time Stop Time Status Last Admin Dose Admin Albuterol/ Ipratropium (Albuterol/ Ipratropium) 3 ml Q4H PRN HHN Shortness of Breath 03/08/19 12:30 03/13/19 12:29 Allopurinol (Zyloprim) 100 mg DAILY ORAL 03/07/19 09:00 04/06/19 08:59 03/08/19 08:50 Amlodipine Besylate (Norvasc) 5 mg DAILY ORAL 03/07/19 09:00 04/06/19 08:59 03/08/19 08:50 Aspirin (Ecotrin) 81 mg DAILY ORAL 03/07/19 09:00 04/06/19 08:59 03/08/19 08:50 Azithromycin (Zithromax) 250 mg DAILY ORAL 03/07/19 09:00 03/12/19 00:00 03/08/19 08:50 Bupropion HCl (Wellbutrin XL) 300 mg DAILY ORAL 03/07/19 09:00 04/06/19 08:59 03/08/19 08:50 Ceftriaxone Sodium 1 gm/ Dextrose 55 ml @ 110 mls/hr Q24H IVPB 03/07/19 02:00 03/14/19 01:59 03/08/19 02:00 Clopidogrel Bisulfate (Plavix) 75 mg DAILY ORAL 03/07/19 09:00 04/06/19 08:59 03/08/19 08:51 Dextrose (Dextrose 50%) 25 ml Q30M PRN IV Hypoglycemia 03/07/19 01:15 04/06/19 01:14 Dextrose (Dextrose 50%) 50 ml Q30M PRN IV Hypoglycemia 03/07/19 01:15 04/06/19 01:14 Enoxaparin Sodium (Lovenox) 100 mg EVERY 12 HOURS SUBQ 03/07/19 14:00 04/06/19 13:59 03/08/19 08:53 Finasteride (Proscar) 5 mg DAILY ORAL 03/07/19 09:00 04/06/19 08:59 03/08/19 08:50 Furosemide (Lasix) 40 mg DAILY ORAL 03/07/19 09:00 04/06/19 08:59 03/08/19 08:49 Hydrochlorothiazide (Hydrodiuril) 25 mg DAILY ORAL 03/07/19 09:00 04/06/19 08:59 03/08/19 08:51 Insulin Aspart (NovoLOG) BEFORE MEALS AND HS SUBQ 03/07/19 06:30 04/06/19 06:29 03/08/19 06:32 Metoprolol Tartrate (Lopressor) 25 mg Q12HR ORAL 03/07/19 21:00 04/06/19 20:59 03/08/19 08:49 Morphine Sulfate (Morphine Sulfate) 2 mg Q4H PRN IVP For Pain 03/07/19 07:00 03/14/19 06:59 03/08/19 13:49 Non-Formulary Medication (Non-Formulary Med) 1 ea DAILY ORAL 03/07/19 09:00 04/06/19 08:59 UNV Promethazine HCl/ Codeine (Phenergan with Codeine) 5 ml Q4H PRN ORAL For Cough 03/07/19 10:45 04/06/19 10:44 Quetiapine Fumarate (SEROquel) 300 mg BEDTIME ORAL 03/07/19 21:00 04/06/19 20:59 03/07/19 21:59 Sennosides (Senokot) 8.6 mg BEDTIME ORAL 03/07/19 21:00 04/06/19 20:59 03/07/19 21:58 Tamsulosin HCl (Flomax) 0.4 mg BEDTIME ORAL 03/07/19 21:00 04/06/19 20:59 03/07/19 21:58 Theophylline (Genaro-Dur) 100 mg EVERY 12 HOURS ORAL 03/07/19 21:00 04/06/19 20:59 03/08/19 08:50 Vitamin D (Vitamin D) 1,000 intlu DAILY ORAL 03/07/19 09:00 04/06/19 08:59 03/08/19 08:49 Byron Sky MD March 08, 2019 14:25
--- NOTE | 2019-03-08 15:15 | Cardiac Electrophysiology PN ---
Assessment/Plan Assessment/Plan 1. Chest pain in the patient with history of coronary artery bypass graft and stent placement. Initial troponin is 0.072. 2 follow up troponins are negative. On aspirin, Plavix, beta-kyree, and statin. Echocardiogram EF 60% SChedule for stress test on Sunday 2. Hypertension. Continue Lasix 40 mg daily,Norvasc 10 daily, hydrochlorothiazide 25 mg daily. Decrease Metoprolol to 25 bid 3. Diabetes. 4. Psychiatric disorder. 5. Prostatic hypertrophy, on Flomax. 6. Pneumonia, on azithromycin. JAMIE RN Subjective Subjective Alert in NAD.No CP or SOB Objective Last 24 Hour Vital Signs Date Time Temp Pulse Resp B/P (MAP) Pulse Ox O2 Delivery O2 Flow Rate FiO2 03/08/19 12:00 98.0 64 20 125/75 (92) 99 03/08/19 12:00 55 03/08/19 09:00 Room Air 03/08/19 08:50 58 120/71 03/08/19 08:49 58 120/71 03/08/19 08:00 98.2 89 20 141/80 (100) 98 03/08/19 08:00 63 03/08/19 04:00 97.0 58 18 120/71 (87) 100 03/08/19 03:54 56 03/08/19 00:00 97.7 59 20 128/69 (88) 99 03/07/19 23:48 60 03/07/19 21:00 55 130/66 03/07/19 20:58 Room Air 03/07/19 20:00 99.7 73 18 158/104 (122) 98 03/07/19 19:45 58 03/07/19 16:00 97.2 55 20 121/68 (85) 97 03/07/19 16:00 52 Intake and Output 03/07/19 03/08/19 19:00 07:00 Intake Total 750 ml 110 ml Output Total 2000 ml 1200 ml Balance -1250 ml -1090 ml Intake Oral 750 ml IV Total 110 ml Output Urine Total 2000 ml 1200 ml # Voids 1 Laboratory Tests Test 03/07/19 18:50 03/08/19 03:14 Troponin I 0.050 ng/mL (0.000-0.056) 0.042 ng/mL (0.000-0.056) Prothrombin Time 11.3 SEC (9.30-11.50) Prothromb Time International Ratio 1.1 (0.9-1.1) Activated Partial Thromboplast Time 34 SEC (23-33) H Sodium Level 140 MMOL/L (136-145) Potassium Level 3.4 MMOL/L (3.5-5.1) L Chloride Level 101 MMOL/L (98-107) Carbon Dioxide Level 33 MMOL/L (21-32) H Anion Gap 6 mmol/L (5-15) Blood Urea Nitrogen 16 mg/dL (7-18) Creatinine 1.1 MG/DL (0.55-1.30) Estimat Glomerular Filtration Rate > 60 mL/min (>60) Glucose Level 115 MG/DL (74-106) H Lactic Acid Level 0.90 mmol/L (0.4-2.0) Calcium Level 9.4 MG/DL (8.5-10.1) Total Bilirubin 0.6 MG/DL (0.2-1.0) Aspartate Amino Transf (AST/SGOT) 36 U/L (15-37) Alanine Aminotransferase (ALT/SGPT) 40 U/L (12-78) Alkaline Phosphatase 57 U/L (46-116) Pro-B-Type Natriuretic Peptide 967 pg/mL (0-125) H Total Protein 7.2 G/DL (6.4-8.2) Albumin 3.6 G/DL (3.4-5.0) Globulin 3.6 g/dL Albumin/Globulin Ratio 1.0 (1.0-2.7) Triglycerides Level 69 MG/DL (30-150) Cholesterol Level 138 MG/DL (< 200) LDL Cholesterol 75 mg/dL (<100) HDL Cholesterol 56 MG/DL (40-60) Cholesterol/HDL Ratio 2.5 (3.3-4.4) L Thyroid Stimulating Hormone (TSH) 2.391 uiU/mL (0.358-3.740) Microbiology Date/Time Source Procedure Growth Status 03/07/19 14:30 Sputum Gram Stain - Final Resulted 03/07/19 14:30 Sputum Sputum Culture - Preliminary NORMAL UPPER RESPIRATORY SHWETA PRESENT Resulted Objective HEAD AND NECK: No JVD or carotid bruits. LUNGS: Clear. CARDIOVASCULAR: Regular S1 and S2 with no gallop or murmur. ABDOMEN: Soft and nontender. EXTREMITIES: No pitting edema. Sternotomy scar is intact. Jared Huffman MD March 08, 2019 15:15
[2019-03-08 16:11] VITALS: BP 148/74
[2019-03-08] MEDS ORDERED: Tubing IV Secondary IV ONE ×2 (16:21→16:22)
[2019-03-08] MEDS ORDERED: NS 275ml ONE (16:22)
[2019-03-08] MEDS ORDERED: Sterile Water Irrig 1000ml IRRIG ONE (16:22)
[2019-03-08] MEDS: metFORMIN 500mg tab ORAL SCH (17:40)
--- NOTE | 2019-03-08 19:30 | NUR ---
HAND-OFF: Report given to Carmelo Regan. Plan of care endorsed
[2019-03-08 20:00] VITALS: BP 132/76
[2019-03-08] MEDS: Tamsulosin 0.4mg cap ORAL SCH (20:13)
[2019-03-08] MEDS: Atorvastatin 20mg tab ORAL SCH (20:14)
[2019-03-08] MEDS: Sennosides 8.6mg tab ORAL SCH (20:14)
--- NOTE | 2019-03-08 23:28 | Psych Consult Progress Note ---
Psychiatry Progress Note Psychiatry Progress Note Subjective the pt is compliant with meds no behaviors Medications Current Medications Medications (Trade) Dose Ordered Sig/Melvin Route PRN Reason Start Time Stop Time Status Last Admin Dose Admin Albuterol/ Ipratropium (Albuterol/ Ipratropium) 3 ml Q4H PRN HHN Shortness of Breath 03/08/19 12:30 03/13/19 12:29 Allopurinol (Zyloprim) 100 mg DAILY ORAL 03/07/19 09:00 04/06/19 08:59 03/08/19 08:50 Amlodipine Besylate (Norvasc) 5 mg DAILY ORAL 03/07/19 09:00 04/06/19 08:59 03/08/19 08:50 Aspirin (Ecotrin) 81 mg DAILY ORAL 03/07/19 09:00 04/06/19 08:59 03/08/19 08:50 Atorvastatin Calcium (Lipitor) 20 mg BEDTIME ORAL 03/08/19 21:00 04/07/19 20:59 03/08/19 20:14 Azithromycin (Zithromax) 250 mg DAILY ORAL 03/07/19 09:00 03/12/19 00:00 03/08/19 08:50 Bupropion HCl (Wellbutrin XL) 300 mg DAILY ORAL 03/07/19 09:00 04/06/19 08:59 03/08/19 08:50 Ceftriaxone Sodium 1 gm/ Dextrose 55 ml @ 110 mls/hr Q24H IVPB 03/07/19 02:00 03/14/19 01:59 03/08/19 02:00 Clopidogrel Bisulfate (Plavix) 75 mg DAILY ORAL 03/07/19 09:00 04/06/19 08:59 03/08/19 08:51 Dextrose (Dextrose 50%) 25 ml Q30M PRN IV Hypoglycemia 03/07/19 01:15 04/06/19 01:14 Dextrose (Dextrose 50%) 50 ml Q30M PRN IV Hypoglycemia 03/07/19 01:15 04/06/19 01:14 Enoxaparin Sodium (Lovenox) 100 mg EVERY 12 HOURS SUBQ 03/07/19 14:00 04/06/19 13:59 03/08/19 20:17 Finasteride (Proscar) 5 mg DAILY ORAL 03/07/19 09:00 04/06/19 08:59 03/08/19 08:50 Furosemide (Lasix) 40 mg DAILY ORAL 03/07/19 09:00 04/06/19 08:59 03/08/19 08:49 Hydrochlorothiazide (Hydrodiuril) 25 mg DAILY ORAL 03/07/19 09:00 04/06/19 08:59 03/08/19 08:51 Metformin HCl (Glucophage) 1,000 mg BIAC ORAL 03/08/19 16:30 04/07/19 16:29 03/08/19 17:40 Metoprolol Tartrate (Lopressor) 25 mg Q12HR ORAL 03/07/19 21:00 04/06/19 20:59 03/08/19 08:49 Morphine Sulfate (Morphine Sulfate) 2 mg Q4H PRN IVP For Pain 03/07/19 07:00 03/14/19 06:59 03/08/19 19:17 Non-Formulary Medication (Non-Formulary Med) 1 ea DAILY ORAL 03/07/19 09:00 04/06/19 08:59 UNV Promethazine HCl/ Codeine (Phenergan with Codeine) 5 ml Q4H PRN ORAL For Cough 03/07/19 10:45 04/06/19 10:44 Quetiapine Fumarate (SEROquel) 300 mg BEDTIME ORAL 03/07/19 21:00 04/06/19 20:59 03/08/19 20:41 Regadenoson (Lexiscan) 0.4 mg ONCE PRN IV stress test 03/10/19 09:00 03/10/19 18:00 Sennosides (Senokot) 17.2 mg BEDTIME ORAL 03/08/19 21:00 04/06/19 20:59 03/08/19 20:14 Tamsulosin HCl (Flomax) 0.4 mg BEDTIME ORAL 03/07/19 21:00 04/06/19 20:59 03/08/19 20:13 Theophylline (Genaro-Dur) 100 mg EVERY 12 HOURS ORAL 03/07/19 21:00 04/06/19 20:59 03/08/19 20:15 Vitamin D (Vitamin D) 1,000 intlu DAILY ORAL 03/07/19 09:00 04/06/19 08:59 03/08/19 08:49 Neurological/Psychiatric: Reports: anxiety, depressed, emotional problems Allergies: Coded Allergies: No Known Allergies (Verified Allergy, Unknown, 10/15/07) Objective Data Height (Feet): 5 Height (Inches): 11.00 Weight (Pounds): 215 General Appearance: WD/WN, no apparent distress, alert, alert oriented x3 Appearance: well groomed Behavior Mannerisms: good eye contact Mental Status Exam - Affect: blunted Mental Status Exam - Mood: depressed, anxious Speech: clear Mental Status Exam - Thought P: no abnormalities Mental Status Exam - Suicidal: not present Assessment/Plan Problem List: (1) Bipolar depression ICD Codes: F31.9 - Bipolar disorder, unspecified SNOMED: 864458221 (2) Depression ICD Codes: F32.9 - Major depressive disorder, single episode, unspecified SNOMED: [id number] Status: stable Assessment/Plan: cont seroquel cont welbutrin provided ro/Milady Aguirre MD March 08, 2019 23:28
[2019-03-09] VITALS: BP 135/68
[2019-03-09] MEDS: cefTRIAXone 1 GM in D5W 55 ML IVPB SCH (02:51)
[2019-03-09 04:00] VITALS: BP 133/77
[2019-03-09] MEDS: metFORMIN 500mg tab ORAL SCH ×2 (05:43→17:32)
[2019-03-09 07:37] LABS: BASOPHILS % (AUTO) 1.7 % (0.0-2.0); EOSINOPHILS % (AUTO) 6.8 % (0.0-3.0); HEMATOCRIT 39.9 % (42.0-52.0); HEMOGLOBIN 13.6 G/DL (14.2-18.0); LYMPHOCYTES % (AUTO) 37.1 % (20.0-45.0); MEAN CORPUSCULAR VOLUME 89 FL (80-99); MONOCYTES % (AUTO) 7.9 % (1.0-10.0); NEUTROPHILS % (AUTO) 46.6 % (45.0-75.0); PLATELET COUNT 159 K/UL (150-450); RED CELL DISTRIBUTION WIDTH 11.7 % (11.6-14.8); WHITE BLOOD COUNT 4.4 K/UL (4.8-10.8)
--- NOTE | 2019-03-09 07:42 | Pulmonology Progress Note ---
Assessment/Plan Assessment/Plan ASSESSMENT possibly bilateral pneumonia elevated troponin, possible ACS -acute VA was ruled out CAD with hx of triple bypass with stents placement HT Hypo Mg Hypo K DM BPH PLAN OF CARE transferred from [place] on tele CTA [place] - no PE, but with evidence of bilateral infiltrates telemetry empiric antibiotic SCX negative O2 HHN prn trial of theophylline antitussive prn fup with CXR this am DVT prophylaxis continue dual a/PLT therapy : ASA and Plavix repeated troponin x 2 negative Echo with pEF 60 %, no WMA, RVSP of 40 c/w mild pulm HTN BP management with the CCB , BB and hydrochlorothiazide continue statin continue maintenance dose of Lasix, monitor volumes and cardiorenal parameters cardio follows stress test Sunday replete K , check Mg and K in am monitor renal parameters and electrolytes, correct electrolytes further as needed, avoid nephrotoxic continue Flomax and Proscar , monitor for voiding BS management with SSI pain management supportive care case discussed and evaluated by supervising physician Subjective Allergies: Coded Allergies: No Known Allergies (Verified Allergy, Unknown, 10/15/07) Subjective remains afebrile, pulse ox stable on RA intermittent CP K-2.9 Objective Last 24 Hour Vital Signs Date Time Temp Pulse Resp B/P (MAP) Pulse Ox O2 Delivery O2 Flow Rate FiO2 03/09/19 04:00 98.6 60 18 133/77 (95) 96 03/09/19 04:00 60 03/09/19 00:00 62 03/09/19 00:00 97.6 66 20 135/68 (90) 98 03/08/19 21:00 Room Air 03/08/19 20:21 60 132/76 03/08/19 20:00 59 03/08/19 20:00 97.6 60 19 132/76 (94) 97 03/08/19 20:00 70 18 Room Air 21 03/08/19 19:47 97.4 03/08/19 16:11 97.4 52 20 148/74 (98) 99 03/08/19 16:00 69 03/08/19 12:00 98.0 64 20 125/75 (92) 99 03/08/19 12:00 55 03/08/19 09:00 Room Air 03/08/19 08:50 58 120/71 03/08/19 08:49 58 120/71 03/08/19 08:00 98.2 89 20 141/80 (100) 98 03/08/19 08:00 63 Intake and Output 03/08/19 03/09/19 19:00 07:00 Intake Total 1420 ml Output Total 1000 ml Balance 1420 ml -1000 ml Intake Oral 1420 ml Output Urine Total 1000 ml # Voids 5 # Bowel Movements 1 Objective General Appearance: no acute distress, awake, alert, oriented AA male HEENT: normocephalic, atraumatic, anicteric, mucous membranes moist Respiratory/Chest: lungs clear, no respiratory distress, no accessory muscle use Cardiovascular: regular rhythm -SR on tele , JVD Abdomen: normal bowel sounds, soft, non tender, non distended Neurologic/Psychiatric: no motor/sensory deficits, alert, responsive Musculoskeletal: normal muscle bulk Microbiology Date/Time Source Procedure Growth Status 03/07/19 14:30 Sputum Gram Stain - Final Complete 03/07/19 14:30 Sputum Sputum Culture - Final NORMAL UPPER RESPIRATORY SHWETA PRESENT Complete Laboratory Tests 03/09/19 05:45: White Blood Count [Pending], Red Blood Count [Pending], Hemoglobin [Pending], Hematocrit [Pending], Mean Corpuscular Volume [Pending], Mean Corpuscular Hemoglobin [Pending], Mean Corpuscular Hemoglobin Concent [Pending], Red Cell Distribution Width [Pending], Platelet Count [Pending], Mean Platelet Volume [ Pending], Neutrophils (%) (Auto) [Pending], Lymphocytes (%) (Auto) [Pending], Monocytes (%) (Auto) [Pending], Eosinophils (%) (Auto) [Pending], Basophils (%) (Auto) [Pending], Sodium Level [Pending], Potassium Level [Pending], Chloride Level [Pending], Carbon Dioxide Level [Pending], Blood Urea Nitrogen [Pending], Creatinine [Pending], Estimat Glomerular Filtration Rate [Pending], Glucose Level [Pending], Calcium Level [Pending] Current Medications Medications (Trade) Dose Ordered Sig/Melvin Route PRN Reason Start Time Stop Time Status Last Admin Dose Admin Albuterol/ Ipratropium (Albuterol/ Ipratropium) 3 ml Q4H PRN HHN Shortness of Breath 03/08/19 12:30 03/13/19 12:29 Allopurinol (Zyloprim) 100 mg DAILY ORAL 03/07/19 09:00 04/06/19 08:59 03/08/19 08:50 Amlodipine Besylate (Norvasc) 5 mg DAILY ORAL 03/07/19 09:00 04/06/19 08:59 03/08/19 08:50 Aspirin (Ecotrin) 81 mg DAILY ORAL 03/07/19 09:00 04/06/19 08:59 03/08/19 08:50 Atorvastatin Calcium (Lipitor) 20 mg BEDTIME ORAL 03/08/19 21:00 04/07/19 20:59 03/08/19 20:14 Azithromycin (Zithromax) 250 mg DAILY ORAL 03/07/19 09:00 03/12/19 00:00 03/08/19 08:50 Bupropion HCl (Wellbutrin XL) 300 mg DAILY ORAL 03/07/19 09:00 04/06/19 08:59 03/08/19 08:50 Ceftriaxone Sodium 1 gm/ Dextrose 55 ml @ 110 mls/hr Q24H IVPB 03/07/19 02:00 03/14/19 01:59 03/09/19 02:51 Clopidogrel Bisulfate (Plavix) 75 mg DAILY ORAL 03/07/19 09:00 04/06/19 08:59 03/08/19 08:51 Dextrose (Dextrose 50%) 25 ml Q30M PRN IV Hypoglycemia 03/07/19 01:15 04/06/19 01:14 Dextrose (Dextrose 50%) 50 ml Q30M PRN IV Hypoglycemia 03/07/19 01:15 04/06/19 01:14 Enoxaparin Sodium (Lovenox) 100 mg EVERY 12 HOURS SUBQ 03/07/19 14:00 04/06/19 13:59 03/08/19 20:17 Finasteride (Proscar) 5 mg DAILY ORAL 03/07/19 09:00 04/06/19 08:59 03/08/19 08:50 Furosemide (Lasix) 40 mg DAILY ORAL 03/07/19 09:00 04/06/19 08:59 03/08/19 08:49 Hydrochlorothiazide (Hydrodiuril) 25 mg DAILY ORAL 03/07/19 09:00 04/06/19 08:59 03/08/19 08:51 Metformin HCl (Glucophage) 1,000 mg BIAC ORAL 03/08/19 16:30 04/07/19 16:29 03/09/19 05:43 Metoprolol Tartrate (Lopressor) 25 mg Q12HR ORAL 03/07/19 21:00 04/06/19 20:59 03/08/19 08:49 Morphine Sulfate (Morphine Sulfate) 2 mg Q4H PRN IVP For Pain 03/07/19 07:00 03/14/19 06:59 03/08/19 19:17 Non-Formulary Medication (Non-Formulary Med) 1 ea DAILY ORAL 03/07/19 09:00 04/06/19 08:59 UNV Promethazine HCl/ Codeine (Phenergan with Codeine) 5 ml Q4H PRN ORAL For Cough 03/07/19 10:45 04/06/19 10:44 Quetiapine Fumarate (SEROquel) 300 mg BEDTIME ORAL 03/07/19 21:00 04/06/19 20:59 03/08/19 20:41 Regadenoson (Lexiscan) 0.4 mg ONCE PRN IV stress test 03/10/19 09:00 03/10/19 18:00 Sennosides (Senokot) 17.2 mg BEDTIME ORAL 03/08/19 21:00 04/06/19 20:59 03/08/19 20:14 Tamsulosin HCl (Flomax) 0.4 mg BEDTIME ORAL 03/07/19 21:00 04/06/19 20:59 03/08/19 20:13 Theophylline (Genaro-Dur) 100 mg EVERY 12 HOURS ORAL 03/07/19 21:00 04/06/19 20:59 03/08/19 20:15 Vitamin D (Vitamin D) 1,000 intlu DAILY ORAL 03/07/19 09:00 04/06/19 08:59 03/08/19 08:49 Celeste Peters NP March 09, 2019 07:42
--- NOTE | 2019-03-09 07:43 | NUR ---
HAND-OFF: Report given to PAM Mayer.
[2019-03-09] MEDS: Morphine Sulfate 2mg/ml Inj(IV/IM USE ONLY) IVP PRN ×3 (07:45→17:37)
[2019-03-09 07:50] LABS: ANION GAP 8 mmol/L (5-15); BLOOD UREA NITROGEN 12 mg/dL (7-18); CALCIUM 9.3 MG/DL (8.5-10.1); CARBON DIOXIDE 30 MMOL/L (21-32); CHLORIDE 101 MMOL/L (98-107); CREATININE 1.1 MG/DL (0.55-1.30); POTASSIUM 2.9 MMOL/L (3.5-5.1); SODIUM 139 MMOL/L (136-145)
[2019-03-09 08:00] VITALS: BP 132/70
[2019-03-09] MEDS: Allopurinol 100mg Tab ORAL SCH (09:20)
[2019-03-09] MEDS: Furosemide 40mg tab ORAL SCH (09:20)
[2019-03-09] MEDS: Theophylline ER 100mg ORAL SCH ×2 (09:20→21:11)
[2019-03-09] MEDS: Vitamin D 1000 IU Tab ORAL SCH (09:20)
[2019-03-09] MEDS: Metoprolol 25mg tab ORAL SCH ×3 (09:21→21:00)
[2019-03-09] MEDS: BuPROPion XL 150mg tab ORAL SCH (09:21)
[2019-03-09] MEDS: Azithromycin 250mg tab ORAL SCH (09:21)
[2019-03-09] MEDS: Aspirin EC 81mg tab ORAL SCH (09:21)
[2019-03-09] MEDS: Enoxaparin 100mg Inj SUBQ SCH ×2 (09:25→21:15)
[2019-03-09 11:51] VITALS: BP 141/76
--- NOTE | 2019-03-09 15:21 | Internal Med Progress Note ---
Subjective Date of Service: March 09, 2019 Physician Name Wil Jackson Attending Physician Everardo Yap MD Current Medications Medications (Trade) Dose Ordered Sig/Melvin Route PRN Reason Start Time Stop Time Status Last Admin Dose Admin Albuterol/ Ipratropium (Albuterol/ Ipratropium) 3 ml Q4H PRN HHN Shortness of Breath 03/08/19 12:30 03/13/19 12:29 Allopurinol (Zyloprim) 100 mg DAILY ORAL 03/07/19 09:00 04/06/19 08:59 03/09/19 09:20 Amlodipine Besylate (Norvasc) 5 mg DAILY ORAL 03/07/19 09:00 04/06/19 08:59 03/09/19 11:41 Aspirin (Ecotrin) 81 mg DAILY ORAL 03/07/19 09:00 04/06/19 08:59 03/09/19 09:21 Atorvastatin Calcium (Lipitor) 20 mg BEDTIME ORAL 03/08/19 21:00 04/07/19 20:59 03/08/19 20:14 Azithromycin (Zithromax) 250 mg DAILY ORAL 03/07/19 09:00 03/12/19 00:00 03/09/19 09:21 Bupropion HCl (Wellbutrin XL) 300 mg DAILY ORAL 03/07/19 09:00 04/06/19 08:59 03/09/19 09:21 Ceftriaxone Sodium 1 gm/ Dextrose 55 ml @ 110 mls/hr Q24H IVPB 03/07/19 02:00 03/14/19 01:59 03/09/19 02:51 Clopidogrel Bisulfate (Plavix) 75 mg DAILY ORAL 03/07/19 09:00 04/06/19 08:59 03/09/19 09:20 Dextrose (Dextrose 50%) 25 ml Q30M PRN IV Hypoglycemia 03/07/19 01:15 04/06/19 01:14 Dextrose (Dextrose 50%) 50 ml Q30M PRN IV Hypoglycemia 03/07/19 01:15 04/06/19 01:14 Enoxaparin Sodium (Lovenox) 100 mg EVERY 12 HOURS SUBQ 03/07/19 14:00 04/06/19 13:59 03/09/19 09:25 Finasteride (Proscar) 5 mg DAILY ORAL 03/07/19 09:00 04/06/19 08:59 03/09/19 09:20 Furosemide (Lasix) 40 mg DAILY ORAL 03/07/19 09:00 04/06/19 08:59 03/09/19 09:20 Hydrochlorothiazide (Hydrodiuril) 25 mg DAILY ORAL 03/07/19 09:00 04/06/19 08:59 03/09/19 09:20 Metformin HCl (Glucophage) 1,000 mg BIAC ORAL 03/08/19 16:30 04/07/19 16:29 03/09/19 05:43 Metoprolol Tartrate (Lopressor) 25 mg Q12HR ORAL 03/07/19 21:00 04/06/19 20:59 03/09/19 11:39 Morphine Sulfate (Morphine Sulfate) 2 mg Q4H PRN IVP For Pain 03/07/19 07:00 03/14/19 06:59 03/09/19 12:59 Non-Formulary Medication (Non-Formulary Med) 1 ea DAILY ORAL 03/07/19 09:00 04/06/19 08:59 UNV Promethazine HCl/ Codeine (Phenergan with Codeine) 5 ml Q4H PRN ORAL For Cough 03/07/19 10:45 04/06/19 10:44 Quetiapine Fumarate (SEROquel) 300 mg BEDTIME ORAL 03/07/19 21:00 04/06/19 20:59 03/08/19 20:41 Regadenoson (Lexiscan) 0.4 mg ONCE PRN IV stress test 03/10/19 09:00 03/10/19 18:00 Sennosides (Senokot) 17.2 mg BEDTIME ORAL 03/08/19 21:00 04/06/19 20:59 03/08/19 20:14 Tamsulosin HCl (Flomax) 0.4 mg BEDTIME ORAL 03/07/19 21:00 04/06/19 20:59 03/08/19 20:13 Theophylline (Genaro-Dur) 100 mg EVERY 12 HOURS ORAL 03/07/19 21:00 04/06/19 20:59 03/09/19 09:20 Vitamin D (Vitamin D) 1,000 intlu DAILY ORAL 03/07/19 09:00 04/06/19 08:59 03/09/19 09:20 Allergies: Coded Allergies: No Known Allergies (Verified Allergy, Unknown, 10/15/07) ROS Limited/Unobtainable: No Constitutional: Reports: no symptoms HEENT: Reports: no symptoms Cardiovascular: Reports: chest pain Respiratory: Reports: no symptoms Gastrointestinal/Abdominal: Reports: no symptoms Genitourinary: Reports: no symptoms Neurologic/Psychiatric: Reports: no symptoms Subjective 63 YO M with history of coronary dis, admitted with chest pain. Cover for Int Med-Dr Yap. Await cardiolite stress test on 03/10/19 Objective Last Vital Signs Date Time Temp Pulse Resp B/P (MAP) Pulse Ox O2 Delivery O2 Flow Rate FiO2 03/09/19 13:29 97.9 03/09/19 11:57 58 03/09/19 11:51 16 141/76 (97) 99 03/09/19 09:00 Room Air 03/09/19 07:36 21 Laboratory Tests Test 03/09/19 05:45 White Blood Count 4.4 K/UL (4.8-10.8) L Red Blood Count 4.50 M/UL (4.70-6.10) L Hemoglobin 13.6 G/DL (14.2-18.0) L Hematocrit 39.9 % (42.0-52.0) L Mean Corpuscular Volume 89 FL (80-99) Mean Corpuscular Hemoglobin 30.2 PG (27.0-31.0) Mean Corpuscular Hemoglobin Concent 34.1 G/DL (32.0-36.0) Red Cell Distribution Width 11.7 % (11.6-14.8) Platelet Count 159 K/UL (150-450) Mean Platelet Volume 7.3 FL (6.5-10.1) Neutrophils (%) (Auto) 46.6 % (45.0-75.0) Lymphocytes (%) (Auto) 37.1 % (20.0-45.0) Monocytes (%) (Auto) 7.9 % (1.0-10.0) Eosinophils (%) (Auto) 6.8 % (0.0-3.0) H Basophils (%) (Auto) 1.7 % (0.0-2.0) Sodium Level 139 MMOL/L (136-145) Potassium Level 2.9 MMOL/L (3.5-5.1) L Chloride Level 101 MMOL/L (98-107) Carbon Dioxide Level 30 MMOL/L (21-32) Anion Gap 8 mmol/L (5-15) Blood Urea Nitrogen 12 mg/dL (7-18) Creatinine 1.1 MG/DL (0.55-1.30) Estimat Glomerular Filtration Rate > 60 mL/min (>60) Glucose Level 120 MG/DL (74-106) H Calcium Level 9.3 MG/DL (8.5-10.1) Microbiology Date/Time Source Procedure Growth Status 03/07/19 14:30 Sputum Gram Stain - Final Complete 03/07/19 14:30 Sputum Sputum Culture - Final NORMAL UPPER RESPIRATORY SHWETA PRESENT Complete Intake and Output 03/08/19 03/09/19 19:00 07:00 Intake Total 1420 ml Output Total 1000 ml Balance 1420 ml -1000 ml Intake Oral 1420 ml Output Urine Total 1000 ml # Voids 5 # Bowel Movements 1 Objective PHYSICAL EXAMINATION: GENERAL: The patient is awake, responsive, in no acute distress. HEAD AND NECK: Pupils equal and reactive to light. Extraocular movements intact. NECK: Supple. No JVD. LUNGS: Good air entry. No wheezes or rales. HEART: S1, S2. Regular rhythm. No murmur or gallops. ABDOMEN: Soft, nondistended, nontender. Positive bowel sounds. EXTREMITIES: No cyanosis, clubbing, or edema. NEUROLOGIC: Cranial nerves II through XII grossly intact. Motor is 5/5 and symmetric. Gait is intact. RECTAL: Refused and deferred. GENITOURINARY: Refused and deferred. Assessment/Plan Problem List: (1) Chest pain Assessment & Plan: See cardiology note. LVEF=60%. Await Cardiolite stress test on Sunday03/10/19 (2) Shortness of breath Assessment & Plan: See pulmonary note. (3) Coronary artery disease (4) HTN (hypertension) Assessment & Plan: Continue lopressor and HCTZ (5) Pre-diabetes Assessment & Plan: Continue novolog sliding scale (6) Hypercholesteremia (7) Bipolar depression Assessment & Plan: See psychiatry note. Wil Jackson MD March 09, 2019 15:21
[2019-03-09 16:00] VITALS: BP 135/75
--- NOTE | 2019-03-09 17:01 | Cardiac Electrophysiology PN ---
Assessment/Plan Assessment/Plan 1. Chest pain in the patient with history of CABG and stent placement. Initial troponin is 0.072. 2 follow up troponins are negative. On aspirin, Plavix, beta-kyree, and statin. Echocardiogram EF 60% Awaiting stress test on Sunday 2. Hypertension. Continue Lasix 40 mg daily,Norvasc 10 daily, hydrochlorothiazide 25 mg daily and Metoprolol 25 bid 3. Diabetes. 4. Psychiatric disorder. 5. Prostatic hypertrophy, on Flomax. 6. Pneumonia, on azithromycin. JAMIE RN Subjective Subjective Alert in NAD.No CP or SOB. Sitting in chair Objective Last 24 Hour Vital Signs Date Time Temp Pulse Resp B/P (MAP) Pulse Ox O2 Delivery O2 Flow Rate FiO2 03/09/19 16:00 97.5 58 18 135/75 (95) 98 03/09/19 13:29 97.9 03/09/19 11:57 58 03/09/19 11:51 97.9 78 16 141/76 (97) 99 03/09/19 11:41 78 141/76 03/09/19 11:39 78 141/76 03/09/19 09:00 Room Air 03/09/19 08:03 57 03/09/19 08:00 97.2 58 18 132/70 (90) 98 03/09/19 07:36 64 18 Room Air 21 03/09/19 04:00 98.6 60 18 133/77 (95) 96 03/09/19 04:00 60 03/09/19 00:00 62 03/09/19 00:00 97.6 66 20 135/68 (90) 98 03/08/19 21:00 Room Air 03/08/19 20:21 60 132/76 03/08/19 20:00 59 03/08/19 20:00 97.6 60 19 132/76 (94) 97 03/08/19 20:00 70 18 Room Air 21 Intake and Output 03/08/19 03/09/19 19:00 07:00 Intake Total 1420 ml Output Total 1000 ml Balance 1420 ml -1000 ml Intake Oral 1420 ml Output Urine Total 1000 ml # Voids 5 # Bowel Movements 1 Laboratory Tests Test 03/09/19 05:45 White Blood Count 4.4 K/UL (4.8-10.8) L Red Blood Count 4.50 M/UL (4.70-6.10) L Hemoglobin 13.6 G/DL (14.2-18.0) L Hematocrit 39.9 % (42.0-52.0) L Mean Corpuscular Volume 89 FL (80-99) Mean Corpuscular Hemoglobin 30.2 PG (27.0-31.0) Mean Corpuscular Hemoglobin Concent 34.1 G/DL (32.0-36.0) Red Cell Distribution Width 11.7 % (11.6-14.8) Platelet Count 159 K/UL (150-450) Mean Platelet Volume 7.3 FL (6.5-10.1) Neutrophils (%) (Auto) 46.6 % (45.0-75.0) Lymphocytes (%) (Auto) 37.1 % (20.0-45.0) Monocytes (%) (Auto) 7.9 % (1.0-10.0) Eosinophils (%) (Auto) 6.8 % (0.0-3.0) H Basophils (%) (Auto) 1.7 % (0.0-2.0) Sodium Level 139 MMOL/L (136-145) Potassium Level 2.9 MMOL/L (3.5-5.1) L Chloride Level 101 MMOL/L (98-107) Carbon Dioxide Level 30 MMOL/L (21-32) Anion Gap 8 mmol/L (5-15) Blood Urea Nitrogen 12 mg/dL (7-18) Creatinine 1.1 MG/DL (0.55-1.30) Estimat Glomerular Filtration Rate > 60 mL/min (>60) Glucose Level 120 MG/DL (74-106) H Calcium Level 9.3 MG/DL (8.5-10.1) Microbiology Date/Time Source Procedure Growth Status 03/07/19 14:30 Sputum Gram Stain - Final Complete 03/07/19 14:30 Sputum Sputum Culture - Final NORMAL UPPER RESPIRATORY SHWETA PRESENT Complete Objective HEAD AND NECK: No JVD LUNGS: Clear. CARDIOVASCULAR: Regular S1 and S2 with no gallop or murmur. Sternotomy scar is intact ABDOMEN: Soft and nontender. EXTREMITIES: No pitting edema. . Jared Huffman MD March 09, 2019 17:00
--- NOTE | 2019-03-09 19:06 | NUR ---
HAND-OFF: Report given to Gaviota Goldman RN.
--- NOTE | 2019-03-09 19:06 | NUR ---
NURSE NOTES: Report received from Leyla OROZCO, Pt is in stable condition and lying comfortably in bed. Bed in lowest position, bed brakes engaged, side rails up x3 with call light within reach. Will continue to monitor.
[2019-03-09 20:00] VITALS: BP 130/69
[2019-03-09] MEDS: Sennosides 8.6mg tab ORAL SCH (21:10)
[2019-03-09] MEDS: Atorvastatin 20mg tab ORAL SCH (21:11)
[2019-03-09] MEDS: Tamsulosin 0.4mg cap ORAL SCH (21:12)
--- NOTE | 2019-03-09 22:29 | Psych Consult Progress Note ---
Psychiatry Progress Note Psychiatry Progress Note Subjective the pt has depressed mood and low energy Medications Current Medications Medications (Trade) Dose Ordered Sig/Melvin Route PRN Reason Start Time Stop Time Status Last Admin Dose Admin Albuterol/ Ipratropium (Albuterol/ Ipratropium) 3 ml Q4H PRN HHN Shortness of Breath 03/08/19 12:30 03/13/19 12:29 Allopurinol (Zyloprim) 100 mg DAILY ORAL 03/07/19 09:00 04/06/19 08:59 03/09/19 09:20 Amlodipine Besylate (Norvasc) 5 mg DAILY ORAL 03/07/19 09:00 04/06/19 08:59 03/09/19 11:41 Aspirin (Ecotrin) 81 mg DAILY ORAL 03/07/19 09:00 04/06/19 08:59 03/09/19 09:21 Atorvastatin Calcium (Lipitor) 20 mg BEDTIME ORAL 03/08/19 21:00 04/07/19 20:59 03/09/19 21:11 Azithromycin (Zithromax) 250 mg DAILY ORAL 03/07/19 09:00 03/12/19 00:00 03/09/19 09:21 Bupropion HCl (Wellbutrin XL) 300 mg DAILY ORAL 03/07/19 09:00 04/06/19 08:59 03/09/19 09:21 Ceftriaxone Sodium 1 gm/ Dextrose 55 ml @ 110 mls/hr Q24H IVPB 03/07/19 02:00 03/14/19 01:59 03/09/19 02:51 Clopidogrel Bisulfate (Plavix) 75 mg DAILY ORAL 03/07/19 09:00 04/06/19 08:59 03/09/19 09:20 Dextrose (Dextrose 50%) 25 ml Q30M PRN IV Hypoglycemia 03/07/19 01:15 04/06/19 01:14 Dextrose (Dextrose 50%) 50 ml Q30M PRN IV Hypoglycemia 03/07/19 01:15 04/06/19 01:14 Enoxaparin Sodium (Lovenox) 100 mg EVERY 12 HOURS SUBQ 03/07/19 14:00 04/06/19 13:59 03/09/19 21:15 Finasteride (Proscar) 5 mg DAILY ORAL 03/07/19 09:00 04/06/19 08:59 03/09/19 09:20 Furosemide (Lasix) 40 mg DAILY ORAL 03/07/19 09:00 04/06/19 08:59 03/09/19 09:20 Hydrochlorothiazide (Hydrodiuril) 25 mg DAILY ORAL 03/07/19 09:00 04/06/19 08:59 03/09/19 09:20 Metformin HCl (Glucophage) 1,000 mg BIAC ORAL 03/08/19 16:30 04/07/19 16:29 03/09/19 17:32 Metoprolol Tartrate (Lopressor) 25 mg Q12HR ORAL 03/07/19 21:00 04/06/19 20:59 03/09/19 11:39 Morphine Sulfate (Morphine Sulfate) 2 mg Q4H PRN IVP For Pain 03/07/19 07:00 03/14/19 06:59 03/09/19 17:37 Non-Formulary Medication (Non-Formulary Med) 1 ea DAILY ORAL 03/07/19 09:00 04/06/19 08:59 UNV Promethazine HCl/ Codeine (Phenergan with Codeine) 5 ml Q4H PRN ORAL For Cough 03/07/19 10:45 04/06/19 10:44 Quetiapine Fumarate (SEROquel) 300 mg BEDTIME ORAL 03/07/19 21:00 04/06/19 20:59 03/09/19 21:11 Regadenoson (Lexiscan) 0.4 mg ONCE PRN IV stress test 03/10/19 09:00 03/10/19 18:00 Sennosides (Senokot) 17.2 mg BEDTIME ORAL 03/08/19 21:00 04/06/19 20:59 03/09/19 21:10 Tamsulosin HCl (Flomax) 0.4 mg BEDTIME ORAL 03/07/19 21:00 04/06/19 20:59 03/09/19 21:12 Theophylline (Genaro-Dur) 100 mg EVERY 12 HOURS ORAL 03/07/19 21:00 04/06/19 20:59 03/09/19 21:11 Vitamin D (Vitamin D) 1,000 intlu DAILY ORAL 03/07/19 09:00 04/06/19 08:59 03/09/19 09:20 Neurological/Psychiatric: Reports: anxiety, depressed, emotional problems Allergies: Coded Allergies: No Known Allergies (Verified Allergy, Unknown, 10/15/07) Objective Data Height (Feet): 5 Height (Inches): 11.00 Weight (Pounds): 215 General Appearance: no apparent distress, alert, alert oriented x3 Appearance: well groomed Behavior Mannerisms: good eye contact Mental Status Exam - Affect: constricted Mental Status Exam - Mood: depressed, angry Speech: clear Mental Status Exam - Thought P: goal-directed Mental Status Exam - Thought C: no abnormalities Mental Status Exam - Suicidal: not present Assessment/Plan Problem List: (1) Bipolar depression ICD Codes: F31.9 - Bipolar disorder, unspecified SNOMED: 939835552 (2) Depression ICD Codes: F32.9 - Major depressive disorder, single episode, unspecified SNOMED: 43378852 Status: stable Assessment/Plan: cont seroquel cont welbutrin provided ro/Milady Aguirre MD March 09, 2019 22:29
--- NOTE | 2019-03-09 23:54 | Diagnostic Imaging Report ---
EXAM: XR Chest, 1 View. CLINICAL HISTORY: SOB TECHNIQUE: Frontal view of the chest. COMPARISON: 06/10/08 FINDINGS: Lungs: Mild scarring seen in the right lung base. Mild left basilar atelectasis. No airspace consolidation or diffuse interstitial abnormality. Pleural spaces: Unremarkable. No pneumothorax. Heart: Unremarkable. No cardiomegaly. Mediastinum: Unremarkable. Bones: No acute fracture. Sternotomy wires are intact. IMPRESSION: No acute cardiopulmonary abnormality.
[2019-03-10] VITALS: BP 132/68
[2019-03-10] MEDS: cefTRIAXone 1 GM in D5W 55 ML IVPB SCH (02:10)
[2019-03-10 04:00] VITALS: BP 132/67
[2019-03-10] MEDS: metFORMIN 500mg tab ORAL SCH (05:05)
--- NOTE | 2019-03-10 07:26 | NUR ---
HAND-OFF: Report given to PAM Kessler.
[2019-03-10 07:58] LABS: BASOPHILS % (AUTO) 1.4 % (0.0-2.0); EOSINOPHILS % (AUTO) 6.2 % (0.0-3.0); HEMATOCRIT 39.3 % (42.0-52.0); HEMOGLOBIN 13.6 G/DL (14.2-18.0); LYMPHOCYTES % (AUTO) 34.9 % (20.0-45.0); MEAN CORPUSCULAR VOLUME 87 FL (80-99); MONOCYTES % (AUTO) 7.8 % (1.0-10.0); NEUTROPHILS % (AUTO) 49.7 % (45.0-75.0); PLATELET COUNT 156 K/UL (150-450); RED BLOOD COUNT 4.51 M/UL (4.70-6.10); RED CELL DISTRIBUTION WIDTH 11.4 % (11.6-14.8); WHITE BLOOD COUNT 4.5 K/UL (4.8-10.8)
--- NOTE | 2019-03-10 07:58 | NUR ---
NURSE NOTES: Patient is alert and oriented. Patient NPO for study today. Side rails up x2, bed is locked, in lowest position, and call light is within reach. Will continue to monitor.
[2019-03-10 08:00] VITALS: BP 118/69
[2019-03-10 08:05] LABS: ANION GAP 8 mmol/L (5-15); BLOOD UREA NITROGEN 12 mg/dL (7-18); CALCIUM 9.7 MG/DL (8.5-10.1); CARBON DIOXIDE 29 MMOL/L (21-32); CHLORIDE 102 MMOL/L (98-107); CREATININE 1.2 MG/DL (0.55-1.30); POTASSIUM 3.1 MMOL/L (3.5-5.1); SODIUM 139 MMOL/L (136-145)
[2019-03-10] MEDS: Vitamin D 1000 IU Tab ORAL SCH (08:41)
[2019-03-10] MEDS: BuPROPion XL 150mg tab ORAL SCH (08:41)
[2019-03-10] MEDS: Aspirin EC 81mg tab ORAL SCH (08:42)
[2019-03-10] MEDS: Enoxaparin 100mg Inj SUBQ SCH (08:42)
[2019-03-10] MEDS: Allopurinol 100mg Tab ORAL SCH (08:42)
[2019-03-10] MEDS: Theophylline ER 100mg ORAL SCH (08:42)
[2019-03-10] MEDS: Azithromycin 250mg tab ORAL SCH (08:43)
[2019-03-10] MEDS: Furosemide 40mg tab ORAL SCH (08:43)
[2019-03-10] MEDS: Metoprolol 25mg tab ORAL SCH (08:43)
[2019-03-10] MEDS: Morphine Sulfate 2mg/ml Inj(IV/IM USE ONLY) IVP PRN ×2 (08:50→13:38)
[2019-03-10] MEDS ORDERED: Lexiscan 0.4mg/5ml syringe IV PRN (09:00)
--- NOTE | 2019-03-10 11:07 | Cardiac Electrophysiology PN ---
Assessment/Plan Assessment/Plan 1. Chest pain in the patient with history of CABG and stent placement. Initial troponin is 0.072. 2 follow up troponins are negative. On aspirin, Plavix, beta-kyree, and statin. Echocardiogram EF 60% Awaiting stress test today 2. Hypertension. Continue Lasix 40 daily, Norvasc 10 daily, hydrochlorothiazide 25 daily and Metoprolol 25 bid 3. Diabetes. 4. Psychiatric disorder. 5. Prostatic hypertrophy, on Flomax. 6. Pneumonia, on azithromycin. DW RN and Subjective Subjective Alert in NAD.No CP or SOB. Stress test today pending. at bedside Objective Last 24 Hour Vital Signs Date Time Temp Pulse Resp B/P (MAP) Pulse Ox O2 Delivery O2 Flow Rate FiO2 03/10/19 08:00 56 03/10/19 08:00 97.6 59 21 118/69 (85) 95 03/10/19 08:00 Room Air 03/10/19 04:00 97.3 58 17 132/67 (88) 94 03/10/19 04:00 64 03/10/19 01:45 75 16 Room Air 21 03/10/19 00:00 97.2 57 18 132/68 (89) 93 03/10/19 00:00 82 03/09/19 21:00 56 130/69 03/09/19 21:00 Room Air 03/09/19 20:00 74 03/09/19 20:00 97.4 56 17 130/69 (89) 93 03/09/19 18:07 97.5 03/09/19 16:00 97.5 58 18 135/75 (95) 98 03/09/19 15:54 54 03/09/19 11:57 58 03/09/19 11:51 97.9 78 16 141/76 (97) 99 03/09/19 11:41 78 141/76 03/09/19 11:39 78 141/76 Intake and Output 03/09/19 03/10/19 19:00 07:00 Intake Total 790 ml Output Total 0 ml Balance 790 ml 0 ml Intake Oral 790 ml Output Urine Total 0 ml # Voids 3 Laboratory Tests Test 03/10/19 07:30 White Blood Count 4.5 K/UL (4.8-10.8) L Red Blood Count 4.51 M/UL (4.70-6.10) L Hemoglobin 13.6 G/DL (14.2-18.0) L Hematocrit 39.3 % (42.0-52.0) L Mean Corpuscular Volume 87 FL (80-99) Mean Corpuscular Hemoglobin 30.2 PG (27.0-31.0) Mean Corpuscular Hemoglobin Concent 34.7 G/DL (32.0-36.0) Red Cell Distribution Width 11.4 % (11.6-14.8) L Platelet Count 156 K/UL (150-450) Mean Platelet Volume 6.5 FL (6.5-10.1) Neutrophils (%) (Auto) 49.7 % (45.0-75.0) Lymphocytes (%) (Auto) 34.9 % (20.0-45.0) Monocytes (%) (Auto) 7.8 % (1.0-10.0) Eosinophils (%) (Auto) 6.2 % (0.0-3.0) H Basophils (%) (Auto) 1.4 % (0.0-2.0) Sodium Level 139 MMOL/L (136-145) Potassium Level 3.1 MMOL/L (3.5-5.1) L Chloride Level 102 MMOL/L (98-107) Carbon Dioxide Level 29 MMOL/L (21-32) Anion Gap 8 mmol/L (5-15) Blood Urea Nitrogen 12 mg/dL (7-18) Creatinine 1.2 MG/DL (0.55-1.30) Estimat Glomerular Filtration Rate > 60 mL/min (>60) Glucose Level 110 MG/DL (74-106) H Calcium Level 9.7 MG/DL (8.5-10.1) Magnesium Level 1.4 MG/DL (1.8-2.4) L Microbiology Date/Time Source Procedure Growth Status 03/07/19 14:30 Sputum Gram Stain - Final Complete 03/07/19 14:30 Sputum Sputum Culture - Final NORMAL UPPER RESPIRATORY SHWETA PRESENT Complete Objective HEAD AND NECK: No JVD LUNGS: Clear. CARDIOVASCULAR: Regular S1 and S2 with no gallop or murmur. Sternotomy scar is intact ABDOMEN: Soft and nontender. EXTREMITIES: No pitting edema. . Jared Huffman MD March 10, 2019 11:07
--- NOTE | 2019-03-10 11:15 | NUR ---
CASE MANAGEMENT:REVIEW 03/10/19 SI: ACS. PNEUMONIA H/O CABG AND STENT 97.6 59 21 118/69 95% ON RA K-3.1 MAG-1.4 IS: IV LEXISCAN X1 IV ROCEPHIN Q24 LOPRESSOR PO Q12 LOVENOX SQ Q12 AZITHROMYCIN PO QD NORVASC PO QD ASA PO QD PLAVIX PO QD LASIX PO QD HCTZ PO QD : TELEMETRY STATUS PLAN: STRESS TEST FOR TODAY
[2019-03-10 12:00] VITALS: BP 134/67
--- NOTE | 2019-03-10 12:13 | Pulmonology Progress Note ---
Assessment/Plan Problems: (1) Bilateral pneumonia (2) ACS (acute coronary syndrome) (3) Hx of heart artery stent (4) S/P triple vessel bypass Assessment/Plan improving respiratory treatment continue abx stress study in process. titrate fio2 to sat of 92% Subjective ROS Limited/Unobtainable: No Constitutional: Reports: no symptoms HEENT: Repors: no symptoms Respiratory: Reports: no symptoms Allergies: Coded Allergies: No Known Allergies (Verified Allergy, Unknown, 10/15/07) Objective Last 24 Hour Vital Signs Date Time Temp Pulse Resp B/P (MAP) Pulse Ox O2 Delivery O2 Flow Rate FiO2 03/10/19 08:00 56 03/10/19 08:00 97.6 59 21 118/69 (85) 95 03/10/19 08:00 Room Air 03/10/19 04:00 97.3 58 17 132/67 (88) 94 03/10/19 04:00 64 03/10/19 01:45 75 16 Room Air 21 03/10/19 00:00 97.2 57 18 132/68 (89) 93 03/10/19 00:00 82 03/09/19 21:00 56 130/69 03/09/19 21:00 Room Air 03/09/19 20:00 74 03/09/19 20:00 97.4 56 17 130/69 (89) 93 03/09/19 18:07 97.5 03/09/19 16:00 97.5 58 18 135/75 (95) 98 03/09/19 15:54 54 Intake and Output 03/09/19 03/10/19 19:00 07:00 Intake Total 790 ml Output Total 0 ml Balance 790 ml 0 ml Intake Oral 790 ml Output Urine Total 0 ml # Voids 3 General Appearance: WD/WN HEENT: normocephalic, atraumatic Respiratory/Chest: chest wall non-tender, lungs clear Cardiovascular: normal peripheral pulses, normal rate Abdomen: normal bowel sounds, soft, non tender Genitourinary: normal external genitalia Extremities: no clubbing 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 Microbiology Date/Time Source Procedure Growth Status 03/07/19 14:30 Sputum Gram Stain - Final Complete 03/07/19 14:30 Sputum Sputum Culture - Final NORMAL UPPER RESPIRATORY SHWETA PRESENT Complete Laboratory Tests 03/10/19 07:30: White Blood Count 4.5L, Red Blood Count 4.51L, Hemoglobin 13.6L, Hematocrit 39.3L, Mean Corpuscular Volume 87, Mean Corpuscular Hemoglobin 30.2, Mean Corpuscular Hemoglobin Concent 34.7, Red Cell Distribution Width 11.4L, Platelet Count 156, Mean Platelet Volume 6.5, Neutrophils (%) (Auto) 49.7, Lymphocytes (%) (Auto) 34.9, Monocytes (%) (Auto) 7.8, Eosinophils (%) (Auto) 6.2H, Basophils (%) (Auto) 1.4, Sodium Level 139, Potassium Level 3.1L, Chloride Level 102, Carbon Dioxide Level 29, Anion Gap 8, Blood Urea Nitrogen 12 , Creatinine 1.2, Estimat Glomerular Filtration Rate > 60, Glucose Level 110H, Calcium Level 9.7, Magnesium Level 1.4L Current Medications Medications (Trade) Dose Ordered Sig/Melvin Route PRN Reason Start Time Stop Time Status Last Admin Dose Admin Albuterol/ Ipratropium (Albuterol/ Ipratropium) 3 ml Q4H PRN HHN Shortness of Breath 03/08/19 12:30 03/13/19 12:29 Allopurinol (Zyloprim) 100 mg DAILY ORAL 03/07/19 09:00 04/06/19 08:59 03/10/19 08:42 Amlodipine Besylate (Norvasc) 5 mg DAILY ORAL 03/07/19 09:00 04/06/19 08:59 03/09/19 11:41 Aspirin (Ecotrin) 81 mg DAILY ORAL 03/07/19 09:00 04/06/19 08:59 03/10/19 08:42 Atorvastatin Calcium (Lipitor) 20 mg BEDTIME ORAL 03/08/19 21:00 04/07/19 20:59 03/09/19 21:11 Azithromycin (Zithromax) 250 mg DAILY ORAL 03/07/19 09:00 03/12/19 00:00 03/10/19 08:43 Bupropion HCl (Wellbutrin XL) 300 mg DAILY ORAL 03/07/19 09:00 04/06/19 08:59 03/10/19 08:41 Ceftriaxone Sodium 1 gm/ Dextrose 55 ml @ 110 mls/hr Q24H IVPB 03/07/19 02:00 03/14/19 01:59 03/10/19 02:10 Clopidogrel Bisulfate (Plavix) 75 mg DAILY ORAL 03/07/19 09:00 04/06/19 08:59 03/10/19 08:41 Dextrose (Dextrose 50%) 25 ml Q30M PRN IV Hypoglycemia 03/07/19 01:15 04/06/19 01:14 Dextrose (Dextrose 50%) 50 ml Q30M PRN IV Hypoglycemia 03/07/19 01:15 04/06/19 01:14 Enoxaparin Sodium (Lovenox) 100 mg EVERY 12 HOURS SUBQ 03/07/19 14:00 04/06/19 13:59 03/10/19 08:42 Finasteride (Proscar) 5 mg DAILY ORAL 03/07/19 09:00 04/06/19 08:59 03/10/19 08:42 Furosemide (Lasix) 40 mg DAILY ORAL 03/07/19 09:00 04/06/19 08:59 03/09/19 09:20 Hydrochlorothiazide (Hydrodiuril) 25 mg DAILY ORAL 03/07/19 09:00 04/06/19 08:59 03/09/19 09:20 Metformin HCl (Glucophage) 1,000 mg BIAC ORAL 03/08/19 16:30 04/07/19 16:29 03/10/19 05:05 Metoprolol Tartrate (Lopressor) 25 mg Q12HR ORAL 03/07/19 21:00 04/06/19 20:59 03/09/19 11:39 Morphine Sulfate (Morphine Sulfate) 2 mg Q4H PRN IVP For Pain 03/07/19 07:00 03/14/19 06:59 03/10/19 08:50 Non-Formulary Medication (Non-Formulary Med) 1 ea DAILY ORAL 03/07/19 09:00 04/06/19 08:59 UNV Promethazine HCl/ Codeine (Phenergan with Codeine) 5 ml Q4H PRN ORAL For Cough 03/07/19 10:45 04/06/19 10:44 Quetiapine Fumarate (SEROquel) 300 mg BEDTIME ORAL 03/07/19 21:00 04/06/19 20:59 03/09/19 21:11 Regadenoson (Lexiscan) 0.4 mg ONCE PRN IV stress test 03/10/19 09:00 03/10/19 18:00 Sennosides (Senokot) 17.2 mg BEDTIME ORAL 03/08/19 21:00 04/06/19 20:59 03/09/19 21:10 Tamsulosin HCl (Flomax) 0.4 mg BEDTIME ORAL 03/07/19 21:00 04/06/19 20:59 03/09/19 21:12 Theophylline (Genaro-Dur) 100 mg EVERY 12 HOURS ORAL 03/07/19 21:00 04/06/19 20:59 03/10/19 08:42 Vitamin D (Vitamin D) 1,000 intlu DAILY ORAL 03/07/19 09:00 04/06/19 08:59 03/10/19 08:41 Maya Cannon MD March 10, 2019 12:13
--- NOTE | 2019-03-10 14:20 | NUR ---
Myocardial Perfusion Scan complete.
--- NOTE | 2019-03-10 14:21 | Infectious Diseases Prog Note ---
Assessment/Plan Assessment/Plan ASSESSMENT: The patient is a 63-year-old male with: Pneumonia (CAP ) ( lower lobes as per outside facility CT scan) -sp cx normal resp dell Afebrile. 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 History of CAD, status post CABG. Hypertension. Diabetes. History of bipolar disorder. History of hyperlipidemia. PLAN: Continue the patient on Rocephin and Zithromax day # 4/5 ( upon Dc will change to Augmentin and Zithro to complete the course) Monitor CBC. Monitor CBC. Monitor BMP. Subjective Allergies: Coded Allergies: No Known Allergies (Verified Allergy, Unknown, 10/15/07) Subjective afebrile no leukocytosis at AR Objective Vital Signs Last 24 Hour Vital Signs Date Time Temp Pulse Resp B/P (MAP) Pulse Ox O2 Delivery O2 Flow Rate FiO2 03/10/19 12:00 63 03/10/19 12:00 97.8 58 21 134/67 (89) 99 03/10/19 08:00 56 03/10/19 08:00 97.6 59 21 118/69 (85) 95 03/10/19 08:00 Room Air 03/10/19 04:00 97.3 58 17 132/67 (88) 94 03/10/19 04:00 64 03/10/19 01:45 75 16 Room Air 21 03/10/19 00:00 97.2 57 18 132/68 (89) 93 03/10/19 00:00 82 03/09/19 21:00 56 130/69 03/09/19 21:00 Room Air 03/09/19 20:00 74 03/09/19 20:00 97.4 56 17 130/69 (89) 93 03/09/19 18:07 97.5 03/09/19 16:00 97.5 58 18 135/75 (95) 98 03/09/19 15:54 54 Height (Feet): 5 Height (Inches): 11.00 Weight (Pounds): 215 Objective HEAD AND NECK: No JVD LUNGS: Clear. CARDIOVASCULAR: Regular S1 and S2 with no gallop or murmur. Sternotomy scar is intact ABDOMEN: Soft and nontender. EXTREMITIES: No pitting edema. Microbiology Date/Time Source Procedure Growth Status 03/07/19 14:30 Sputum Gram Stain - Final Complete 03/07/19 14:30 Sputum Sputum Culture - Final NORMAL UPPER RESPIRATORY DELL PRESENT Complete Laboratory Tests Test 03/10/19 07:30 White Blood Count 4.5 K/UL (4.8-10.8) L Red Blood Count 4.51 M/UL (4.70-6.10) L Hemoglobin 13.6 G/DL (14.2-18.0) L Hematocrit 39.3 % (42.0-52.0) L Mean Corpuscular Volume 87 FL (80-99) Mean Corpuscular Hemoglobin 30.2 PG (27.0-31.0) Mean Corpuscular Hemoglobin Concent 34.7 G/DL (32.0-36.0) Red Cell Distribution Width 11.4 % (11.6-14.8) L Platelet Count 156 K/UL (150-450) Mean Platelet Volume 6.5 FL (6.5-10.1) Neutrophils (%) (Auto) 49.7 % (45.0-75.0) Lymphocytes (%) (Auto) 34.9 % (20.0-45.0) Monocytes (%) (Auto) 7.8 % (1.0-10.0) Eosinophils (%) (Auto) 6.2 % (0.0-3.0) H Basophils (%) (Auto) 1.4 % (0.0-2.0) Sodium Level 139 MMOL/L (136-145) Potassium Level 3.1 MMOL/L (3.5-5.1) L Chloride Level 102 MMOL/L (98-107) Carbon Dioxide Level 29 MMOL/L (21-32) Anion Gap 8 mmol/L (5-15) Blood Urea Nitrogen 12 mg/dL (7-18) Creatinine 1.2 MG/DL (0.55-1.30) Estimat Glomerular Filtration Rate > 60 mL/min (>60) Glucose Level 110 MG/DL (74-106) H Calcium Level 9.7 MG/DL (8.5-10.1) Magnesium Level 1.4 MG/DL (1.8-2.4) L Current Medications Medications (Trade) Dose Ordered Sig/Melvin Route PRN Reason Start Time Stop Time Status Last Admin Dose Admin Albuterol/ Ipratropium (Albuterol/ Ipratropium) 3 ml Q4H PRN HHN Shortness of Breath 5/4/19 12:30 03/13/19 12:29 Allopurinol (Zyloprim) 100 mg DAILY ORAL 03/07/19 09:00 04/06/19 08:59 03/10/19 08:42 Amlodipine Besylate (Norvasc) 5 mg DAILY ORAL 03/07/19 09:00 04/06/19 08:59 03/09/19 11:41 Aspirin (Ecotrin) 81 mg DAILY ORAL 03/07/19 09:00 04/06/19 08:59 03/10/19 08:42 Atorvastatin Calcium (Lipitor) 20 mg BEDTIME ORAL 03/08/19 21:00 04/07/19 20:59 03/09/19 21:11 Azithromycin (Zithromax) 250 mg DAILY ORAL 03/07/19 09:00 03/12/19 00:00 03/10/19 08:43 Bupropion HCl (Wellbutrin XL) 300 mg DAILY ORAL 03/07/19 09:00 04/06/19 08:59 03/10/19 08:41 Ceftriaxone Sodium 1 gm/ Dextrose 55 ml @ 110 mls/hr Q24H IVPB 03/07/19 02:00 03/14/19 01:59 03/10/19 02:10 Clopidogrel Bisulfate (Plavix) 75 mg DAILY ORAL 03/07/19 09:00 04/06/19 08:59 03/10/19 08:41 Dextrose (Dextrose 50%) 25 ml Q30M PRN IV Hypoglycemia 03/07/19 01:15 04/06/19 01:14 Dextrose (Dextrose 50%) 50 ml Q30M PRN IV Hypoglycemia 03/07/19 01:15 04/06/19 01:14 Enoxaparin Sodium (Lovenox) 100 mg EVERY 12 HOURS SUBQ 03/07/19 14:00 04/06/19 13:59 03/10/19 08:42 Finasteride (Proscar) 5 mg DAILY ORAL 03/07/19 09:00 04/06/19 08:59 03/10/19 08:42 Furosemide (Lasix) 40 mg DAILY ORAL 03/07/19 09:00 04/06/19 08:59 03/09/19 09:20 Hydrochlorothiazide (Hydrodiuril) 25 mg DAILY ORAL 03/07/19 09:00 04/06/19 08:59 03/09/19 09:20 Metformin HCl (Glucophage) 1,000 mg BIAC ORAL 03/08/19 16:30 04/07/19 16:29 03/10/19 05:05 Metoprolol Tartrate (Lopressor) 25 mg Q12HR ORAL 03/07/19 21:00 04/06/19 20:59 03/09/19 11:39 Morphine Sulfate (Morphine Sulfate) 2 mg Q4H PRN IVP For Pain 03/07/19 07:00 03/14/19 06:59 03/10/19 13:38 Non-Formulary Medication (Non-Formulary Med) 1 ea DAILY ORAL 03/07/19 09:00 04/06/19 08:59 UNV Promethazine HCl/ Codeine (Phenergan with Codeine) 5 ml Q4H PRN ORAL For Cough 03/07/19 10:45 04/06/19 10:44 Quetiapine Fumarate (SEROquel) 300 mg BEDTIME ORAL 03/07/19 21:00 04/06/19 20:59 03/09/19 21:11 Regadenoson (Lexiscan) 0.4 mg ONCE PRN IV stress test 03/10/19 09:00 03/10/19 18:00 03/10/19 12:44 Sennosides (Senokot) 17.2 mg BEDTIME ORAL 03/08/19 21:00 04/06/19 20:59 03/09/19 21:10 Tamsulosin HCl (Flomax) 0.4 mg BEDTIME ORAL 03/07/19 21:00 04/06/19 20:59 03/09/19 21:12 Theophylline (Genaro-Dur) 100 mg EVERY 12 HOURS ORAL 03/07/19 21:00 04/06/19 20:59 03/10/19 08:42 Vitamin D (Vitamin D) 1,000 intlu DAILY ORAL 03/07/19 09:00 04/06/19 08:59 03/10/19 08:41 Jenny Arias M.D. March 10, 2019 14:21
--- NOTE | 2019-03-10 14:32 | NUR ---
NURSE NOTES: Potassium this AM 3.1. Dr. Cannon notified. New order received.
--- NOTE | 2019-03-10 15:19 | Diagnostic Imaging Report ---
Indication: chest pain Technique: The study was conducted under the supervision of a tubing assembler. lexiscan (regadenoson) infusion over 10 seconds followed by intravenous administration of 30.9 mCi of technetium 99m Myoview was performed. Three plane SPECT imaging of the heart was then performed. A resting study was performed as part of the one-day protocol with 10.9 mCi of technetium 99m myoview injected intravenously at that time. Three plane SPECT imaging of the heart was obtained. Comparison: None Clinical data: LVEF is estimated at 68% 1. Clinical response: Non ischemic 2. Electrocardiographic response: Non ischemic Findings: The myocardial perfusion scan demonstrates no fixed or reversible perfusion defects are identified. IMPRESSION: Negative myocardial perfusion scan
--- NOTE | 2019-03-10 16:24 | NUR ---
NURSE NOTES: Patient discharged Home via taxi. Taxi voucher given to patient. Belongings reviewed and accounted for. Discharge instructions given to patient. IV removed, ID bracelet removed. Patient stable upon discharge.
--- NOTE | 2019-03-10 23:00 | Progress Note ---
DATE: 03/10/2019 SUBJECTIVE: The patient is doing well. Compliant with medication. Has episodes of anxiety. He presents with depressed mood, anhedonia, worthlessness, hopelessness, and decreased energy. He is having at times hopelessness. Overall doing well. Compliant with medication. MENTAL STATUS EXAMINATION: The patient is alert and oriented x4. Mood is depressed. Affect is constricted. Congruent with mood. Thought process is concrete. Thought content, no suicidal or homicidal ideations. ASSESSMENT: 1. Bipolar disorder. Continue the Wellbutrin. Continue Seroquel . 2. Latuda is not on the formulary, however, the patient Latuda and use. Milady Walker M.D. DR: AUSTYN JOB#: [id number] CC:
--- NOTE | 2019-03-13 09:35 | Cardiology Report ---
APPROVED REPORT EKG Measurement Heart [id number] Sinus bradycardia Possible Left atrial enlargement Borderline ECG
--- NOTE | 2019-03-13 14:10 | Discharge Summary ---
Discharge Summary Discharge Summary _ DATE OF ADMISSION: 03/06/2019 DATE OF DISCHARGE: 03/10/2019 DISCHARGED BY: Dr. Yap REASON FOR ADMISSION: 63 years old male with past medical history of coronary artery disease ,status post triple bypass surgery and coronary stent placement, hypertension, dyslipidemia, diabetes, status post exploratory laparotomy with repair of bowel , bipolar disorder, schizophrenia, presented initially to [facility] emergency department, complaining of chest pain for the past few days. Chest pain described as mild to moderate, pressure-like , resolved with rest. Chest pain was getting progressively worse over the past 24 hours , described as 8 out of 10 in intensity. No associated nausea. No diaphoresis. No radiation. Patient reported that it felt like someone was sitting on his chest. Patient had a long history of heart disease with triple bypass surgery about 3 years ago and 2 stent placement 2 years ago. No recent stress test was done, as per patient. During work-up at [facility] patient was found to have elevated lactic acid -7.8. CT of the chest revealed no evidence of PE. Patchy infiltrate involving the lower lobes noted. No enlarged mediastinal lymph nodes. EKG revealed sinus rhythm, no acute ischemic changes. Troponin was negative. Patient started on broad-spectrum antibiotics and subsequently was transferred to [facility] for chest pain , possible acute coronary syndrome and pneumonia. CONSULTANTS: habilitation worker Dr. Dial pulmonary Dr. Cannon ID specialist Dr. Sky psychiatrist [facility] [employer] [facility] COURSE: Patient admitted to telemetry floor Patient was followed with serial troponin and lactic acid. Cardiology, pulmonology and ID specialists followed . First troponin was elevated 0.072 Next two troponin were negative. EKG revealed sinus rhythm, no acute ischemic changes. Echocardiogram revealed preserved ejection fraction of 60% with mild left ventricular hypertrophy. No evidence of pericardial effusion. No evidence of wall motion abnormality. Right ventricular systolic pressure of 40 consistent of mild pulmonary hypertension. Patient was on dual antiplatelet therapy with aspirin and Plavix, beta-kyree and statin. Patient was continued on maintenance dose of diuretic. Volumes and cardiorenal parameters were closely monitored. Blood pressure was managed with calcium channel kyree , hydrochlorothiazide , beta-kyree and Lasix. Patient undergone a myocardial perfusion test , which was nonischemic. No fixed or reversible perfusion defects were identified. Lipid panel was stable. Per habilitation worker, chest pain was noncardiac. Chest x-ray revealed no acute cardiopulmonary pathology. CT scan from [place] with evidence of bilateral pneumonia. Chest pain was probably related to pneumonia. Supplemental oxygen provided as needed to keep pulse oximetry above 92%. Pulmonary toilet provided as needed. Patient started on trial of theophylline. Antitussive provided as needed. DVT prophylaxis provided. Patient started on empiric antibiotic as per ID specialist direction. Sputum culture was negative. Patient remained afebrile , no leukocytosis. Patient was on empiric Rocephin and Zithromax. Upon discharge patient was changed on Augmentin and Zithromax to complete the course. Urine toxicology screen was negative. Renal parameters and electrolytes were closely monitored, electrolytes corrected as needed. Nephrotoxins were avoided. Flomax and Proscar continued. Patient was closely monitored for voiding, no difficulty with voiding. Blood sugar was managed with sliding scale of insulin. Pain management was addressed. Supportive care provided. Psychiatrist followed and diagnosed patient with bipolar disorder and depression. Wellbutrin and Seroquel continued. Patient was taking Latuda from home ( not hospital formulary). Reality orientation and supportive therapy provided. Mental status was stable. FINAL DIAGNOSES: Bilateral pneumonia Chest pain , noncardiac, likely due to pneumonia Coronary artery disease with history of CABG and stent placement Hypertension Electrolyte imbalance: hypomagnesemia, hypokalemia Diabetes mellitus BPH Hypercholesterolemia Bipolar disorder Depression DISCHARGE MEDICATIONS: See Medication Reconciliation list. DISCHARGE INSTRUCTIONS: Patient was discharged home . Follow up with primary care provider in one week. Celeste Peters NP March 13, 2019 14:10
--- NOTE | 2019-03-13 20:53 | Physician Query ---
--------- THIS DOCUMENT IS A PERMANENT PART OF THE MEDICAL RECORD --------- PLEASE COMPLETE THE DOCUMENT BEFORE SIGNING Dear Dr. Huffman Date: 03/13/19 Headmaster/Mistress/CDS' Name: Elysia Mendoza CCS Exercise your independent professional judgment when responding to query. Questions asked do not imply particular answer is desired or expected. We greatly appreciate your clarification on this issue. Clinical Documentation States: 1. Chest pain in the patient with history of CABG and stent placement. Initial troponin is 0.072. 2 follow up troponins are negative. On aspirin, Plavix, beta-kyree, and statin. Echocardiogram EF 60% 2. Hypertension. Continue Lasix 40 mg daily,Norvasc 10 daily, hydrochlorothiazide 25 mg daily and Metoprolol 25 bid 3. Diabetes. 4. Psychiatric disorder. 5. Prostatic hypertrophy, on Flomax. 6. Pneumonia, on azithromycin. ECHO stable, stress test non-ischemic, no fixed or reversible defects. EKG revealed sinus rhythm, no acute ischemic changes. Troponin was negative. Patient started on broad-spectrum antibiotics and subsequently was transferred to [facility] for chest pain , possible acute coronary syndrome and pneumonia. Please document the suspected etiology of Chest Pain: a.Type: []Cardiac []Non-cardiac []Unspecified b.Etiology - cardiac [] Aortic dissection []Mitral valve prolapsed [] Acute myocardial infarction []Spasm of coronary arteries [] Coronary Artery Disease ]Pericarditis c.Etiology - non-cardiac [] Anxiety []Pleurisy [] Cancer []Pneumonia, type [] Costochondritis []Pneumothorax [] GERD/Esophagitis []Pulmonary embolism [] Unable to determine []Other: Jared Huffman M.D. Date & Time [facility]
== END 2019-03-10 16:42 | disposition home or self-care (01) | DRG 195 ==
LOC: 2E 23:08
DX: J18.9 Pneumonia, unspecified organism (principal); R07.89 Other chest pain; I25.10 Atherosclerotic heart disease of native coronary artery without angina pectoris; Z95.1 Presence of aortocoronary bypass graft; Z95.5 Presence of coronary angioplasty implant and graft; I10 Essential (primary) hypertension; E78.5 Hyperlipidemia, unspecified; F31.9 Bipolar disorder, unspecified; N40.0 Benign prostatic hyperplasia without lower urinary tract symptoms; F17.200 Nicotine dependence, unspecified, uncomplicated; E83.42 Hypomagnesemia; E87.6 Hypokalemia; E11.9 Type 2 diabetes mellitus without complications; F20.9 Schizophrenia, unspecified
CPT/HCPCS: 36415; 71045; 78452; 80048; 80053; 80061; 80307; 82962; 83605; 83735; 83880; 84100; 84443; 84484; 85025; 85610; 85730; 87070; 87205; 93005; 93017; 93306; 94664; J1815; J2785; J8499